=== PATIENT | male | born 1935 | race Caucasian/White ===

== ENCOUNTER 2018-07-23 03:05 | Inpatient (IN) | payer MEDICARE, OTHER ==
--- NOTE | 2018-07-23 03:31 | ED ---
General Adult HPI - General Stated complaint: Pneumonia Time Seen by Provider: 07/23/18 03:11 - History of Present Illness Initial comments: Santosh is an 83-year-old gentleman who was transferred to our facility from outside facility for evaluation of hypercapnic respiratory failure and mental status. Per the at bedside patient was in his usual state of health throughout the day yesterday he does have some mild dementia but she spent the day with him she had dinner with him and the return to his room where she noticed he had some significant difficulty in breathing he was breathing very quickly and seem like he wasn't getting enough air which time decision was made to take him to the skull for evaluation. During evaluation patient was noted to be much more tired than usual, less interactive, chest x-ray was concerning for possible ammonia and she was given vancomycin and Zosyn. ABG they revealed he was hypercapnic with a pCO2 of 77 he was initiated on BiPAP and decision was made to transfer to this facility for further management. Upon arrival patient has BiPAP in place is able to answer yes no questions but is very sleepy. When asked if he has chest pain patient says no. When asked if having trouble breathing patient pulled at the BiPAP but was advised to keep that on at which time he laid back down stop asking questions. - Related Data Allergies Allergy/AdvReac Type Severity Reaction Status Date / Time ativan AdvReac Hallucinati Uncoded 07/23/18 06:04 ons norco AdvReac Itching Uncoded 07/23/18 06:04 quetiapine AdvReac Confusion Uncoded 07/23/18 06:04 Review of Systems ROS Statement: Those systems with pertinent positive or pertinent negative responses have been documented in the HPI. ROS Other: All systems not noted in ROS Statement are negative. General Exam - General Exam Comments Initial Comments: Physical Exam GENERAL: Chronically ill appearing elderly male on bipap HENT: Normocephalic, Atraumatic. EYES: PERRL, EOMI PULMONARY: Tachypnea CARDIOVASCULAR: RRR ABDOMEN: Belly breathing SKIN: Skin is clear with no lesions or rashes and otherwise unremarkable. : Deferred NEUROLOGIC: Answers to his name, answers yes/no MUSCULOSKELETAL: No lower extremity edema PSYCHIATRIC: Unable to assess Course Vital Signs 07/23/18 07/23/18 07/23/18 03:13 03:15 03:40 Temperature 98.0 F Pulse Rate 73 75 60 Respiratory 16 16 21 Rate Blood Pressure 140/75 140/75 145/86 O2 Sat by Pulse 96 95 96 Oximetry 07/23/18 07/23/18 07/23/18 04:10 04:40 05:20 Temperature Pulse Rate 60 59 L 59 L Respiratory 20 20 20 Rate Blood Pressure 150/83 144/70 144/70 O2 Sat by Pulse 94 L 96 Oximetry 07/23/18 07/23/18 07/23/18 06:10 06:30 07:00 Temperature Pulse Rate 60 60 63 Respiratory 20 20 22 Rate Blood Pressure 155/77 137/62 115/61 O2 Sat by Pulse 97 98 Oximetry EKG Findings - EKG Comments: EKG Findings:: KG was obtained at 325, rate is 72 rhythm is ventricular paced QRS 132, QTc 473 to elevations or depressions no evidence of acute ischemia or infarction Procedures - Intubation Sedative: Etomidate Mg Given: 20 Paralytic: Succinylcholine Mg Given: 100 Laryngoscope: Moni Size: 3 ET Tube Size: 8 ET Tube Uncuffed: No Tube Secured Depth (cm): 23 Tube Secured Location: lips Tube Placement Confirmation: visualized tube passing through cords, equal breath sounds bilaterally, no breath sounds over epigastrium, confirmation by capnometry Patient Tolerated Procedure: well, no complications Medical Decision Making - Medical Decision Making Patient care was discussed with the transferring physician, patient was seen and evaluated upon arrival. Patient was noted to be somewhat sleepy but was able to reach up and pull off his BiPAP decision was made to continue treatment with BiPAP. ABG revealed worsening hypercapnia and BiPAP settings were adjusted. Patient was not improving and repeat BG again revealed worsening hypercapnia. At that time the patient's family arrived at bedside in CODE STATUS was discussed. They report that they would like the patient to be full code and would consent to intubation decision was made to intubate the patient for hypercapnic neck respiratory failure. Labs were reviewed Chest x-ray with no signs of pneumonia despite IV fluid resuscitation Patient care was discussed with Dr. Wilson who except the patient to the ICU for hypercapnic respiratory failure Patient care was discussed with Dr. Woodward who accepts the admission for hypercapnic respiratory failure - Lab Data Result diagrams: 07/23/18 04:12 07/23/18 04:12 Lab Results 07/23/18 07/23/18 07/23/18 Range/Units 03:57 04:12 04:12 WBC 9.0 (3.8-10.6) k/uL RBC 5.38 (4.30-5.90) m/uL Hgb 14.6 (13.0-17.5) gm/dL Hct 47.6 (39.0-53.0) % MCV 88.4 (80.0-100.0) fL MCH 27.2 (25.0-35.0) pg MCHC 30.7 L (31.0-37.0) g/dL RDW 13.8 (11.5-15.5) % Plt Count 208 (150-450) k/uL Neutrophils % 90 % Lymphocytes % 7 % Monocytes % 2 % Eosinophils % 1 % Basophils % 0 % Neutrophils # 8.1 H (1.3-7.7) k/uL Lymphocytes # 0.7 L (1.0-4.8) k/uL Monocytes # 0.1 (0-1.0) k/uL Eosinophils # 0.1 (0-0.7) k/uL Basophils # 0.0 (0-0.2) k/uL Hypochromasia Slight Sample Site Left Radial ABG pH 7.30 L (7.35-7.45) ABG pCO2 79 H* (35-45) mmHg ABG pO2 130 H (83-108) mmHg ABG HCO3 39 H (21-25) mmol/L ABG Total CO2 42 H (19-24) mmol/L ABG O2 Saturation 98.1 H (94-97) % ABG Base Excess 12.8 mmol/L Prashanth Test Yes FiO2 50 % Sodium 139 (137-145) mmol/L Potassium 4.9 (3.5-5.1) mmol/L Chloride 96 L (98-107) mmol/L Carbon Dioxide 36 H (22-30) mmol/L Anion Gap 7 mmol/L BUN 17 (9-20) mg/dL Creatinine 0.74 (0.66-1.25) mg/dL Est GFR (CKD-EPI)AfAm >90 (>60 ml/min/1.73 sqM) Est GFR (CKD-EPI)NonAf 85 (>60 ml/min/1.73 sqM) Glucose 136 H (74-99) mg/dL Calcium 8.7 (8.4-10.2) mg/dL Magnesium 1.8 (1.6-2.3) mg/dL Total Bilirubin 0.4 (0.2-1.3) mg/dL AST 28 (17-59) U/L ALT 21 (21-72) U/L Alkaline Phosphatase 95 (38-126) U/L Total Protein 7.1 (6.3-8.2) g/dL Albumin 3.7 (3.5-5.0) g/dL 07/23/18 Range/Units 04:55 WBC (3.8-10.6) k/uL RBC (4.30-5.90) m/uL Hgb (13.0-17.5) gm/dL Hct (39.0-53.0) % MCV (80.0-100.0) fL MCH (25.0-35.0) pg MCHC (31.0-37.0) g/dL RDW (11.5-15.5) % Plt Count (150-450) k/uL Neutrophils % % Lymphocytes % % Monocytes % % Eosinophils % % Basophils % % Neutrophils # (1.3-7.7) k/uL Lymphocytes # (1.0-4.8) k/uL Monocytes # (0-1.0) k/uL Eosinophils # (0-0.7) k/uL Basophils # (0-0.2) k/uL Hypochromasia Sample Site Left Radial ABG pH 7.29 L (7.35-7.45) ABG pCO2 80 H* (35-45) mmHg ABG pO2 84 (83-108) mmHg ABG HCO3 38 H (21-25) mmol/L ABG Total CO2 41 H (19-24) mmol/L ABG O2 Saturation 94.7 (94-97) % ABG Base Excess 11.8 mmol/L Prashanth Test Yes FiO2 35 % Sodium (137-145) mmol/L Potassium (3.5-5.1) mmol/L Chloride (98-107) mmol/L Carbon Dioxide (22-30) mmol/L Anion Gap mmol/L BUN (9-20) mg/dL Creatinine (0.66-1.25) mg/dL Est GFR (CKD-EPI)AfAm (>60 ml/min/1.73 sqM) Est GFR (CKD-EPI)NonAf (>60 ml/min/1.73 sqM) Glucose (74-99) mg/dL Calcium (8.4-10.2) mg/dL Magnesium (1.6-2.3) mg/dL Total Bilirubin (0.2-1.3) mg/dL AST (17-59) U/L ALT (21-72) U/L Alkaline Phosphatase (38-126) U/L Total Protein (6.3-8.2) g/dL Albumin (3.5-5.0) g/dL Critical Care Time Critical Care Time: Yes Total Critical Care Time: 30 Disposition Clinical Impression: Acute respiratory failure, Altered mental state, Hypercapnemia Disposition: ADMITTED IP TO THIS [facility] Condition: Serious Is patient prescribed a controlled substance at d/c from ED?: No
[2018-07-23 04:03] LABS: ABG Base Excess 12.8 mmol/L; ABG HCO3 39 mmol/L (21-25); ABG Oxygen Saturation 98.1 % (94-97); ABG PO2 130 mmHg (83-108); ABG TCO2 42 mmol/L (19-24); Allen Test Performed? Yes
[2018-07-23 04:14] LABS: ABG PCO2 79 mmHg (35-45)
[2018-07-23 04:29] LABS: Basophils % (A) 0 %; Eosinophils # (A) 0.1 k/uL (0-0.7); Eosinophils % (A) 1 %; HCT 47.6 % (39.0-53.0); HGB 14.6 gm/dL (13.0-17.5); Hypochromasia Slight; Lymphocytes # (A) 0.7 k/uL (1.0-4.8); Lymphocytes % (A) 7 %; MCH 27.2 pg (25.0-35.0); MCHC 30.7 g/dL (31.0-37.0); MCV 88.4 fL (80.0-100.0); Mean Platelet Volume 7.1; Monocytes # (A) 0.1 k/uL (0-1.0); Monocytes % (A) 2 %; Neutrophils # (A) 8.1 k/uL (1.3-7.7); Neutrophils % (A) 90 %; Platelet Count 208 k/uL (150-450); RBC 5.38 m/uL (4.30-5.90); RDW 13.8 % (11.5-15.5)
[2018-07-23 04:33] LABS: ALT 21 U/L (21-72); AST 28 U/L (17-59); African American GFR (CKD) >90 (>60 ml/min/1.73 sqM); Albumin 3.7 g/dL (3.5-5.0); Alkaline Phosphatase 95 U/L (38-126); Anion Gap 7 mmol/L; Blood Urea Nitrogen 17 mg/dL (9-20); Calcium 8.7 mg/dL (8.4-10.2); Carbon Dioxide 36 mmol/L (22-30); Chloride 96 mmol/L (98-107); Glucose 136 mg/dL (74-99); Magnesium 1.8 mg/dL (1.6-2.3); Potassium 4.9 mmol/L (3.5-5.1); Sodium 139 mmol/L (137-145); Total Bilirubin 0.4 mg/dL (0.2-1.3); Total Protein 7.1 g/dL (6.3-8.2)
--- NOTE | 2018-07-23 04:37 | XR ---
EXAM: XR Chest, 1 View CLINICAL HISTORY: ITS.REASON XR Reason: ANGEL TECHNIQUE: Frontal view of the chest. COMPARISON: No relevant prior studies available. FINDINGS: Lungs: Unremarkable. No consolidation. Pleural space: Unremarkable. No pneumothorax. Heart: No pneumomediastinum. Mediastinum: Unremarkable. Bones/joints: No definite fracture. IMPRESSION: No acute findings.
[2018-07-23 05:00] LABS: ABG Base Excess 11.8 mmol/L; ABG HCO3 38 mmol/L (21-25); ABG Oxygen Saturation 94.7 % (94-97); ABG PH 7.29 (7.35-7.45); ABG PO2 84 mmHg (83-108); ABG TCO2 41 mmol/L (19-24); Allen Test Performed? Yes
[2018-07-23 05:07] LABS: ABG PCO2 80 mmHg (35-45)
--- NOTE | 2018-07-23 05:09 | CT ---
EXAM: CT Head Without Intravenous Contrast CLINICAL HISTORY: ITS.REASON CT Reason: altered TECHNIQUE: Axial computed tomography images of the head/brain without intravenous contrast. This CT exam was performed using one or more of the following dose reduction techniques: automated exposure control, adjustment of the mA and/or kV according to patient size, and/or use of iterative reconstruction technique. COMPARISON: No relevant prior studies available. FINDINGS: Brain: No hemorrhage. No edema. Ventricles: Unremarkable. No ventriculomegaly. Bones/joints: No acute fracture. Soft tissues: Unremarkable. Sinuses: No fluid levels. Mastoid air cells: Unremarkable as visualized. No mastoid effusion. IMPRESSION: No acute intracranial findings
[2018-07-23] MEDS ORDERED: NALOXONE 0.4 MG/ML 1 ML VIAL IV PRN (05:38)
[2018-07-23] MEDS ORDERED: PROPOFOL 1,000 MG in EMPTY BAG 1 BAG IV ONE (06:02)
[2018-07-23] MEDS ORDERED: SUCCINYLCHOLINE CHLORIDE VIAL 200 MG/10 ML VIAL IV STA (06:03)
[2018-07-23] MEDS ORDERED: ETOMIDATE 2 MG/ML 10 ML VIAL IVP STA (06:03)
--- NOTE | 2018-07-23 07:22 | XR ---
EXAM: XR Chest, 1 View CLINICAL HISTORY: ITS.REASON XR Reason: line placement TECHNIQUE: Frontal view of the chest. COMPARISON: No relevant prior studies available. FINDINGS: Lungs: Unremarkable. No consolidation. Pleural space: Unremarkable. No pneumothorax. Heart: No pneumomediastinum. Mediastinum: Unremarkable. Bones/joints: No definite fracture. Tubes, lines and devices: Support tubes in place. NG tube in the stomach and endotracheal tube 5 cm above the carl IMPRESSION: No acute findings.
[2018-07-23 07:41] LABS: ABG Base Excess 11.5 mmol/L; ABG HCO3 37 mmol/L (21-25); ABG Oxygen Saturation 90.8 % (94-97); ABG PCO2 64 mmHg (35-45); ABG PH 7.37 (7.35-7.45); ABG PO2 61 mmHg (83-108); ABG TCO2 39 mmol/L (19-24); Allen Test Performed? Yes
[2018-07-23] MEDS: PROPOFOL 1,000 MG in EMPTY BAG 1 BAG IV SCH ×4 (08:30→19:19)
[2018-07-23 08:41] LABS: Glucose,Whole Blood 171 mg/dL (75-99)
[2018-07-23] MEDS ORDERED: IPRATROPIUM-ALBUTEROL 3 ML NEB INHALATION PRN (09:18)
[2018-07-23] MEDS: SODIUM CHLORIDE 0.9% 1,000 ML IV SCH ×3 (09:30→15:11)
[2018-07-23] MEDS ORDERED: CISATRACURIUM 2 MG/ML 5 ML VIAL IV ONE (09:52)
[2018-07-23] MEDS ORDERED: SODIUM CHLORIDE 0.9% 1,000 ML IV ONE (10:55)
--- NOTE | 2018-07-23 10:57 | CONS ---
CONSULTATION DATE OF SERVICE: July 23, 2018. PULMONARY/CRITICAL CARE CONSULTATION: HISTORY OF PRESENT ILLNESS: This is is an 83-year-old gentleman who resides at one of the nursing homes up in [place]. The patient apparently was found by his to be short of breath. The patient was transferred to [facility] where he was placed on BiPAP. He was transferred down here. He saw Dr. Orellana in the emergency room. She was concerned for romulo respiratory failure requiring intubation and mechanical ventilation. Because he apparently was not getting better on treatments and BiPAP in our emergency room, she electively intubated the patient. The patient was now sent up to the ICU. The patient is currently on the ventilator. The vent settings are the volume assist-control mode rate of 22, tidal volume 500, FiO2 100%, PEEP of 5. Blood gases done in the emergency room show pO2 of 61, pCO2 of 64, and a pH 7.37. He is getting saline at 50 mL an hour and Diprivan at 40 mcg/kg per per minute. He apparently has a history of COPD, pacemaker insertion, CABG in 2010, CVA. He is currently wheelchair bound. ALLERGIES: HIS ALLERGIES INCLUDE ATIVAN,NORCO, AND SEROQUEL. MEDICATIONS: His usual medications at the [facility] include Norvasc, coenzyme Q, Flomax, potassium, multivitamins, metoprolol, Namenda, melatonin, milk of magnesia, Imodium, hydrochlorothiazide, vitamin D3, Eliquis, albuterol updrafts, Tylenol, and Zantac. PAST MEDICAL HISTORY: The rest of the history is not well known. We do not know much about surgical history other than a bypass and a pacemaker insertion. OCCUPATIONAL HISTORY: Not documented as yet. FAMILY HISTORY: Not documented as yet. REVIEW OF SYSTEMS: Cannot be obtained. The patient is currently intubated. According to the , the reason that she initially had him brought into the [place] ER was that of shortness of breath and difficulty breathing. PHYSICAL EXAMINATION: VITAL SIGNS: Current vital signs are reviewed. Temperature is 98, heart rate 63, respiratory rate 22, blood pressure 115/61 mean 79, saturations 98%. GENERAL: Currently sedated. There is an orally placed endotracheal tube and NG tube. HEENT examination is grossly unremarkable. NECK: Supple. No adenopathy or neck vein distention. No thyromegaly. CARDIOVASCULAR examination reveals regular rhythm and rate. Heart rate 63 beats per minute. LUNGS: Some coarse rhonchi and wheezes. Breath sounds are diminished. ABDOMEN: Soft. Bowel sounds are not noted. EXTREMITIES are intact. Mild edema. SKIN without rash. NEUROLOGIC examination could not be adequately assessed. LABS: Reviewed. White count 9, hemoglobin 14.6, hematocrit 47.6, platelet count 208,000. Initial blood gases post intubation show pO2 of 61, pCO2 of 64, and pH 7.37. The initial blood gases in the emergency room showed a PO2 of 130, pCO2 of 39, and pCO2 of 79, and pH 7.30. Subsequent blood gases show PO2 of 84, a pCO2 of 80 and pH 7.29. Sodium, potassium normal, chloride 96, CO2 36, BUN and creatinine were 17 and 0.74. The patient's chest x-ray showed no acute findings. Repeat chest x-ray post intubation showed no acute findings and a brain CT showed nothing acute. MEDICATIONS ARE: Reviewed. Currently, he is on IV Tylenol, chlorhexidine, updrafts with DuoNeb, Narcan, propofol Protonix and subcu heparin. ASSESSMENT: 1. Acute on chronic hypoxemic hypercapnic respiratory failure in a patient with established history of chronic obstructive pulmonary disease. 2. Status post bypass grafting, 2010. 3. Status post pacemaker insertion. 4. History of cerebrovascular accident. 5. General medical debility as the patient apparently is wheelchair bound. 6. History of hypertension. 7. History of benign prostatic hypertrophy. 8. History of dementia. 9. History of insomnia. PLAN: The patient will have a central line and art line placed. We will start him on tube feeds. No additional recommendations are made. Prognosis is guarded. We will do a repeat blood gas and make ventilator adjustments. No additional recommendations are made. Prognosis is very guarded. MMODL / IJN: [id number] /
[2018-07-23 11:10] LABS: ABG Base Excess 9.3 mmol/L; ABG HCO3 33 mmol/L (21-25); ABG Oxygen Saturation 99.8 % (94-97); ABG PCO2 48 mmHg (35-45); ABG PH 7.45 (7.35-7.45); ABG PO2 326 mmHg (83-108); ABG TCO2 35 mmol/L (19-24)
[2018-07-23 11:13] LABS: Allen Test Performed? no
--- NOTE | 2018-07-23 11:14 | XR ---
EXAMINATION TYPE: XR chest 1V portable DATE OF EXAM: 07/23/2018 HISTORY: Line Placement. REFERENCE: Previous study from earlier today. FINDINGS: There has been a midline sternotomy. The NG tube is in place. Its tip cannot be followed be yond the distal esophagus. A left-sided central line has been placed. Its tip is at the cavoatrial ju nction. No definite pneumothorax is identified. Heart size upper limits of normal. The lungs are clear. Pleural space are clear. IMPRESSION: I DO NOT IDENTIFY A POST CATHETER INSERTION COMPLICATION.
[2018-07-23] MEDS: IPRATROPIUM-ALBUTEROL 3 ML NEB INHALATION SCH ×4 (11:17→23:56)
[2018-07-23] MEDS: CHLORHEXIDINE GLUCONATE 15 ML CUP MUCOUS MEM SCH ×2 (12:13→21:24)
[2018-07-23] MEDS: PANTOPRAZOLE 40 MG/10 ML VIAL IV SCH (12:13)
[2018-07-23 12:23] LABS: Glucose,Whole Blood 152 mg/dL (75-99)
--- NOTE | 2018-07-23 12:57 | PCN ---
PROCEDURE NOTE ARTERIAL LINE PLACEMENT: Indications: Hemodynamic monitoring. A time-out was completed verifying correct patient, procedure, site, positioning, and implant(s) or special equipment if applicable. Prashanth's test was performed to ensure adequate perfusion. The patient's left wrist was prepped and draped in sterile fashion. 1% Lidocaine was used to anesthetize the area. An 18G Arrow arterial line was introduced into the radial artery. The catheter was threaded over the guide wire and the needle was removed with appropriate pulsatile blood return. Blood loss was minimal. The catheter was then sutured in place to the skin and a sterile dressing applied. Perfusion to the extremity distal to the point of catheter insertion was checked and found to be adequate. The patient tolerated the procedure well and there were no complications. There was no immediate complication. We used the left radial artery. The catheter was sutured in place. Sterile dressing was applied. The reason for the procedure was frequent blood gases and blood gas monitoring as well as frequent blood draws. MMODL / IJN: [id number] /
--- NOTE | 2018-07-23 12:57 | PCN ---
PROCEDURE NOTE TRIPLE LUMEN CATHETER PLACEMENT: Indication: Hemodynamic monitoring/Intravenous access. A time-out was completed verifying correct patient, procedure, site, positioning, and implant(s) or special equipment if applicable. The patient was placed in a dependent position appropriate for triple lumen catheter placement based on the vein to be cannulated. The patient's left neck was prepped and draped in sterile fashion. 1% Lidocaine was used to anesthetize the surrounding skin area. A triple lumen 9F Cordis catheter was introduced into the internal jugular vein using Seldinger technique. The catheter was threaded smoothly over the guide wire and appropriate blood return was obtained. Each lumen of the catheter was evacuated of air and flushed with sterile saline. The catheter was then sutured in place to the skin and a sterile dressing applied. Perfusion to the extremity distal to the point of catheter insertion was checked and found to be adequate. There was no immediate complication. We used a posterior approach left internal jugular vein. There was no immediate complication. The catheter tip was seen in the superior vena cava/right atrial junction. The catheter was sutured in place. Sterile dressing is applied. Course x-ray had been ordered. Showed the procedure was well tolerated. There was no complication. MMODL / IJN: [id number] /
[2018-07-23] MEDS: INSULIN ASPART (NovoLOG) 100 UNIT/ML VIAL SQ SCH ×2 (13:18→18:21)
[2018-07-23] MEDS ORDERED: SODIUM CHLORIDE 0.9% 2,000 ML IV ONE (14:10)
[2018-07-23] MEDS: HEPARIN SODIUM,PORCINE 5,000 UNIT/ML 1 ML VIAL SQ SCH ×2 (16:38→23:42)
[2018-07-23] MEDS ORDERED: FUROSEMIDE 10 MG/ML 4 ML VIAL IV STA (16:59)
[2018-07-23 17:10] LABS: Glucose,Whole Blood 131 mg/dL (75-99)
--- NOTE | 2018-07-23 17:41 | P.HPIM ---
History of Present Illness 80-year-old male resident of [facility] came in with comments of shortness of breath patient is found to be in hypercapnic respiratory failure was on BiPAP not doing well patient was subsequently intubated. Patient is presently intubated sedated on propofol. Patient chest x-ray did not show any significant amount process patient is on FiO2 of 40% PEEP of 5 set up respiratory rate of 22 type volume of 500. Review of Systems Unable to obtain Past Medical History Past Medical History: Atrial Fibrillation, Coronary Artery Disease (CAD), Cance r, COPD, Dementia, Hearing Disorder / Deafness, Hyperlipidemia, Hypertension, Memory Impairment, Musculoskeletal Disorder, Prostate Disorder, Respiratory Disorder, Vascular Disorder Additional Past Medical History / Comment(s): Vascular, Dementia, CA prostate, Bradycardia, AFIB,BPH, Prostate CA per (Dr Washington), Emphysema, arthitis History of Any Multi-Drug Resistant Organisms: None Reported Past Surgical History: AICD, Cholecystectomy, Coronary Bypass/CABG, Joint Replacement, Pacemaker Additional Past Surgical History / Comment(s): 4 vessel CABG 2010 ([place]), Cataracts; Left knee replaced; left rotator cuff, 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; [employer] pacemakerimplanted 09/11/2010 Model [id number] serial # [id number] Past Anesthesia/Blood Transfusion Reactions: No Reported Reaction Type of Cardiac Device: Permanent Pacemaker, AICD Device Placement Date:: 09/11/2010 Past Psychological History: No Psychological Hx Reported, Anxiety Smoking Status: Unknown if ever smoked Past Alcohol Use History: None Reported Past Drug Use History: None Reported - Past Family History Sister(s) Family Medical History: Cancer Additional Family Medical History / Comment(s): Breast CA Brother(s) Family Medical History: Cancer Additional Family Medical History / Comment(s): X2 brothers passed Father Additional Family Medical History / Comment(s): Stroke Mother Family Medical History: Cancer Medications and Allergies Home Medications Medication Instructions Recorded Confirmed Type ALPRAZolam [Xanax] 1 mg PO BID 07/23/18 07/23/18 History Acetaminophen Tab [Tylenol] 500 mg PO BID 07/23/18 07/23/18 History Albuterol Nebulized [Ventolin 2.5 mg INHALATION RT-TID 07/23/18 07/23/18 History Nebulized] Apixaban [Eliquis] 2.5 mg PO BID 07/23/18 07/23/18 History Carboxymethylcellulos/Glycerin 1 drop BOTH EYES TID 07/23/18 07/23/18 History [Refresh Repair 0.5-0.9% Drop] Cholecalciferol (Vitamin D3) 1,000 unit PO DAILY 07/23/18 07/23/18 History [Vitamin D3] Hydrochlorothiazide [Hydrodiuril] 25 mg PO DAILY 07/23/18 07/23/18 History Lactobacillus Acidophilus 1 tab PO DAILY 07/23/18 07/23/18 History [Acidophilus] Loperamide [Imodium] 2 mg PO BID 07/23/18 07/23/18 History Magnesium Hydroxide [Milk of 2,400 mg PO DAILY PRN 07/23/18 07/23/18 History Magnesia] Melatonin 5 mg PO HS 07/23/18 07/23/18 History Memantine [Namenda] 5 mg PO HS 07/23/18 07/23/18 History Metoprolol Tartrate [Lopressor] 50 mg PO DAILY 07/23/18 07/23/18 History Multivitamins, Thera [Multivitamin 1 tab PO DAILY 07/23/18 07/23/18 History (formulary)] Potassium Chloride ER [K-Dur 20] 20 meq PO BID 07/23/18 07/23/18 History Tamsulosin [Flomax] 0.4 mg PO DAILY 07/23/18 07/23/18 History Ubidecarenone [Co Q-10] 200 mg PO HS 07/23/18 07/23/18 History amLODIPine [Norvasc] 5 mg PO DAILY 07/23/18 07/23/18 History Allergies Allergy/AdvReac Type Severity Reaction Status Date / Time ativan AdvReac Hallucinati Uncoded 07/23/18 06:04 ons norco AdvReac Itching Uncoded 07/23/18 06:04 quetiapine AdvReac Confusion Uncoded 07/23/18 06:04 Physical Exam Vitals: Vital Signs Temp Pulse Resp BP Pulse Ox 07/23/18 15:51 66 07/23/18 15:40 64 07/23/18 11:30 60 07/23/18 11:17 60 07/23/18 09:00 97.7 F 60 23 127/77 99 07/23/18 08:30 94.8 F L 65 22 117/70 07/23/18 08:00 60 22 122/66 98 07/23/18 07:30 60 22 126/73 98 07/23/18 07:00 63 22 115/61 98 07/23/18 06:30 60 20 137/62 97 07/23/18 06:10 60 20 155/77 07/23/18 05:20 59 L 20 144/70 07/23/18 04:40 59 L 20 144/70 96 07/23/18 04:10 60 20 150/83 94 L 07/23/18 03:40 60 21 145/86 96 07/23/18 03:15 75 16 140/75 95 07/23/18 03:13 98.0 F 73 16 140/75 96 Intake and Output 07/23/18 07/23/18 07/23/18 06:59 14:59 22:59 Intake Total 1.083 250 100 Output Total 320 Balance 1.083 -70 100 Intake: Intake, IV Titration 1.083 250 100 Amount Propofol 1,000 mg In 1.083 Empty Bag 1 bag @ Titrate IV .Q0M [facility] Rx#: [id number] Propofol 1,000 mg In 100 100 Empty Bag 1 bag @ Titrate IV .Q0M [facility] Rx#: [id number] Sodium Chloride 0.9% 1, 150 000 ml @ 50 mls/hr IV . Q20H [facility] Rx#:[id number] Output: Urine 320 Other: Weight 121.336 kg PHYSICAL EXAMINATION: GENERAL: Patient is intubated sedated HEENT: Pupils are round and equally reacting to light. EOMI. No scleral icterus. No conjunctival pallor. Normocephalic, atraumatic. No pharyngeal erythema. No thyromegaly. CARDIOVASCULAR: S1 and S2 present. No murmurs, rubs, or gallops. PULMONARY: Diffuse rhonchi ABDOMEN: Soft, nontender, nondistended, normoactive bowel sounds. No palpable organomegaly. MUSCULOSKELETAL: No joint swelling or deformity. EXTREMITIES: No cyanosis, clubbing, or pedal edema. NEUROLOGICAL: Unable to assess SKIN: No rashes. Results CBC & Chem 7: 07/23/18 04:12 07/23/18 04:12 Labs: Abnormal Lab Results - Last 24 Hours (Table) 07/23/18 07/23/18 07/23/18 Range/Units 03:57 04:12 04:12 MCHC 30.7 L (31.0-37.0) g/dL Neutrophils # 8.1 H (1.3-7.7) k/uL Lymphocytes # 0.7 L (1.0-4.8) k/uL ABG pH 7.30 L (7.35-7.45) ABG pCO2 79 H* (35-45) mmHg ABG pO2 130 H (83-108) mmHg ABG HCO3 39 H (21-25) mmol/L ABG Total CO2 42 H (19-24) mmol/L ABG O2 Saturation 98.1 H (94-97) % Chloride 96 L (98-107) mmol/L Carbon Dioxide 36 H (22-30) mmol/L Glucose 136 H (74-99) mg/dL POC Glucose (mg/dL) (75-99) mg/dL 07/23/18 07/23/18 07/23/18 Range/Units 04:55 07:04 08:29 MCHC (31.0-37.0) g/dL Neutrophils # (1.3-7.7) k/uL Lymphocytes # (1.0-4.8) k/uL ABG pH 7.29 L (7.35-7.45) ABG pCO2 80 H* 64 H (35-45) mmHg ABG pO2 61 L (83-108) mmHg ABG HCO3 38 H 37 H (21-25) mmol/L ABG Total CO2 41 H 39 H (19-24) mmol/L ABG O2 Saturation 90.8 L (94-97) % Chloride (98-107) mmol/L Carbon Dioxide (22-30) mmol/L Glucose (74-99) mg/dL POC Glucose (mg/dL) 171 H (75-99) mg/dL 07/23/18 07/23/18 07/23/18 Range/Units 11:04 12:11 16:59 MCHC (31.0-37.0) g/dL Neutrophils # (1.3-7.7) k/uL Lymphocytes # (1.0-4.8) k/uL ABG pH (7.35-7.45) ABG pCO2 48 H (35-45) mmHg ABG pO2 326 H (83-108) mmHg ABG HCO3 33 H (21-25) mmol/L ABG Total CO2 35 H (19-24) mmol/L ABG O2 Saturation 99.8 H (94-97) % Chloride (98-107) mmol/L Carbon Dioxide (22-30) mmol/L Glucose (74-99) mg/dL POC Glucose (mg/dL) 152 H 131 H (75-99) mg/dL Microbiology - Last 24 Hours (Table) 07/23/18 06:38 Gram Stain - Preliminary Sputum Sputum Culture - Preliminary Assessment and Plan Plan: Acute on chronic hypercapnic respiratory failure secondary to COPD exacerbation for which patient assessment strides continue with inhalational treatments with ventilatory support and wean off as tolerated. -Cerebral vascular accident -Atrial fibrillation, sick sinus syndrome patient has a pacemaker patient is on Eliquis which will be continued -History of CVA in the past -Hypertension Abdomen benign prostatic hypertrophic -Dementia -Generalized deconditioning Patient will need GI prophylaxis pharmacologic
[2018-07-23] MEDS: NOREPINEPHRINE 4 MG in SODIUM CHLORIDE 0.9% 250 ML IV SCH (18:09)
[2018-07-23 21:08] LABS: Hyaline Casts,Urine 49 /lpf (0-2); Mucus,Urine Rare /hpf; RBC,Urine 1 /hpf (0-5)
[2018-07-23 21:09] LABS: Appearance,Urine Clear (Clear); Bilirubin,Urine Negative (Negative); Blood,Urine Negative (Negative); Color,Urine Light Yellow; Glucose,Urine (UA) Negative (Negative); Ketones,Urine Negative (Negative); Leukocyte Esterase,Urine Negative (Negative); Nitrite,Urine Negative (Negative); Protein,Urine Negative (Negative); Urobilinogen,Urine <2.0 mg/dL (<2.0)
[2018-07-23] MEDS: methylPREDNISolone SOD SUCCI 40 MG/ML 1 ML VIAL IV SCH (21:24)
[2018-07-23] MEDS: APIXABAN 2.5 MG TABLET PO SCH (21:24)
[2018-07-23] MEDS: METOPROLOL TARTRATE 25 MG TAB PO SCH (21:24)
[2018-07-23 23:52] LABS: Glucose,Whole Blood 130 mg/dL (75-99)
[2018-07-24] MEDS: INSULIN ASPART (NovoLOG) 100 UNIT/ML VIAL SQ SCH ×5 (00:44→23:37)
[2018-07-24] MEDS: PROPOFOL 1,000 MG in EMPTY BAG 1 BAG IV SCH ×7 (00:47→23:33)
[2018-07-24] MEDS: IPRATROPIUM-ALBUTEROL 3 ML NEB INHALATION SCH ×5 (03:44→20:14)
[2018-07-24 04:39] LABS: ABG Base Excess 3.7 mmol/L; ABG HCO3 29 mmol/L (21-25); ABG Oxygen Saturation 94.1 % (94-97); ABG PCO2 48 mmHg (35-45); ABG PH 7.39 (7.35-7.45); ABG PO2 73 mmHg (83-108); ABG TCO2 30 mmol/L (19-24); Allen Test Performed? Yes
[2018-07-24 05:14] LABS: African American GFR (CKD) >90 (>60 ml/min/1.73 sqM); Anion Gap 10 mmol/L; Blood Urea Nitrogen 22 mg/dL (9-20); Calcium 8.4 mg/dL (8.4-10.2); Carbon Dioxide 28 mmol/L (22-30); Chloride 99 mmol/L (98-107); Glucose 164 mg/dL (74-99); Magnesium 1.8 mg/dL (1.6-2.3); Phosphorus 3.6 mg/dL (2.5-4.5); Potassium 4.1 mmol/L (3.5-5.1); Sodium 137 mmol/L (137-145)
[2018-07-24 05:16] LABS: Basophils % (A) 0 %; Eosinophils % (A) 0 %; HCT 39.6 % (39.0-53.0); HGB 12.3 gm/dL (13.0-17.5); Hypochromasia Moderate; Lymphocytes # (A) 0.6 k/uL (1.0-4.8); Lymphocytes % (A) 7 %; MCH 27.3 pg (25.0-35.0); MCHC 31.1 g/dL (31.0-37.0); MCV 87.7 fL (80.0-100.0); Mean Platelet Volume 7.7; Monocytes # (A) 0.2 k/uL (0-1.0); Monocytes % (A) 2 %; Neutrophils # (A) 7.5 k/uL (1.3-7.7); Neutrophils % (A) 90 %; Platelet Count 163 k/uL (150-450); RBC 4.52 m/uL (4.30-5.90); RDW 14.2 % (11.5-15.5); WBC 8.3 k/uL (3.8-10.6)
[2018-07-24] MEDS: SODIUM CHLORIDE 0.9% 1,000 ML IV SCH ×2 (05:41→15:46)
[2018-07-24] MEDS ORDERED: Magnesium Replacement Protocol 1 EACH MISC MISCELLANE PRN (05:45)
[2018-07-24] MEDS: MAGNESIUM SULFATE-D5W PMX 1 GM in DEXTROSE/WATER 1 100ML.BAG IVPB SCH ×2 (05:50→06:57)
[2018-07-24 06:49] LABS: Glucose,Whole Blood 196 mg/dL (75-99)
[2018-07-24 06:49] LABS: Glucose,Whole Blood 142 mg/dL (75-99)
[2018-07-24] MEDS: NOREPINEPHRINE 4 MG in SODIUM CHLORIDE 0.9% 250 ML IV SCH ×3 (06:59→19:49)
--- NOTE | 2018-07-24 07:18 | XR ---
EXAMINATION TYPE: XR chest 1V portable DATE OF EXAM: 07/24/2018 COMPARISON: 07/23/2018 HISTORY: Endotracheal tube placement. ICU management. TECHNIQUE: Single frontal view of the chest is obtained. FINDINGS: Endotracheal tube and enteric tubes are similar in position to the prior. Post surgical ch anges of the chest are again noted with median sternotomy wires. Left-sided internal jugular central venous catheter again terminates in the high right atrium. Lung volumes have decreased in the interim with new bibasilar airspace disease and small left as well as trace right pleural effusions. No siza ble pneumothorax. IMPRESSION: New small left pleural effusion, trace right pleural effusion and bibasilar airspace dis ease, likely atelectasis. Stable lines and tubes.
[2018-07-24] MEDS: CHLORHEXIDINE GLUCONATE 15 ML CUP MUCOUS MEM SCH ×2 (09:16→20:12)
[2018-07-24] MEDS: APIXABAN 2.5 MG TABLET PO SCH ×2 (09:16→20:12)
[2018-07-24] MEDS: HEPARIN SODIUM,PORCINE 5,000 UNIT/ML 1 ML VIAL SQ SCH ×3 (09:17→23:33)
[2018-07-24] MEDS: TAMSULOSIN 0.4 MG CAP.ER.24H PO SCH (09:17)
[2018-07-24] MEDS: METOPROLOL TARTRATE 25 MG TAB PO SCH ×2 (09:17→20:12)
[2018-07-24] MEDS: PANTOPRAZOLE 40 MG/10 ML VIAL IV SCH (09:17)
[2018-07-24] MEDS: methylPREDNISolone SOD SUCCI 40 MG/ML 1 ML VIAL IV SCH ×2 (09:17→20:12)
[2018-07-24 12:00] LABS: Glucose,Whole Blood 153 mg/dL (75-99)
[2018-07-24] MEDS: PIPERACILLIN-TAZOBACTAM 3.375 GM in SODIUM CHLORIDE 0.9% 100 ML IVPB SCH ×2 (12:12→19:42)
[2018-07-24 12:34] LABS: Hemoglobin A1C 5.9 % (4.0-6.0)
--- NOTE | 2018-07-24 14:45 | P.PN ---
Subjective 83-year-old male was admitted for COPD exacerbation acute hypercapnic respiratory failure and patient remains intubated and didn't undergo pain felt today this will be attempted tomorrow. Unable to obtain due to patient's clinical condition All inpatient medications were reviewed and appropriate changes in these medications as dictated in the interval history and assessment and plan. Objective - Vital Signs Vital signs: Vital Signs Temp 97.3 F L 07/24/18 08:00 Pulse 62 07/24/18 11:35 Resp 22 07/24/18 08:30 BP 128/65 07/24/18 08:30 Pulse Ox 96 07/24/18 08:30 Intake & Output 07/23/18 07/24/18 07/24/18 18:59 06:59 18:59 Intake Total 5235.678 1550.596 441.960 Output Total 936 690 67 Balance 4299.678 860.596 374.960 Weight 117.2 kg 117.2 kg Intake: IV 1200 300 Magnesium Sulfate-D5w Pmx 100 100 1 gm In Dextrose/Water 1 100ml.bag @ 100 mls/hr IVPB Q1H [facility] Rx#: [id number] Sodium Chloride 0.9% 1, 1100 200 000 ml @ 100 mls/hr IV . Q10H [facility] Rx#:[id number] Intake, IV Titration 5235.678 350.596 141.960 Amount Propofol 1,000 mg In 210.678 250.596 141.960 Empty Bag 1 bag @ Titrate IV .Q0M [facility] Rx#: [id number] Sodium Chloride 0.9% 1, 1025 100 000 ml @ 100 mls/hr IV . Q10H [facility] Rx#:[id number] Sodium Chloride 0.9% 1, 4000 000 ml @ 999 mls/hr IV . Q1H1M [facility] Rx#:[id number] Output: Urine 936 690 67 Other: Voiding Method Indwelling Catheter Indwelling Catheter Indwelling Catheter ABP, PAP, CO, CI - Last Documented Arterial Blood Pressure 121/50 - Exam PHYSICAL EXAMINATION: GENERAL: Patient is intubated sedated HEENT: Pupils are round and equally reacting to light. EOMI. No scleral icterus. No conjunctival pallor. Normocephalic, atraumatic. No pharyngeal erythema. No thyromegaly. CARDIOVASCULAR: S1 and S2 present. No murmurs, rubs, or gallops. PULMONARY: Diffuse rhonchi ABDOMEN: Soft, nontender, nondistended, normoactive bowel sounds. No palpable organomegaly. MUSCULOSKELETAL: No joint swelling or deformity. EXTREMITIES: No cyanosis, clubbing, or pedal edema. NEUROLOGICAL: Unable to assess SKIN: No rashes. - Labs CBC & Chem 7: 07/24/18 04:50 07/24/18 04:50 Labs: Abnormal Lab Results - Last 24 Hours (Table) 07/23/18 07/23/18 07/23/18 Range/Units 16:59 20:35 23:40 Hgb (13.0-17.5) gm/dL Lymphocytes # (1.0-4.8) k/uL ABG pCO2 (35-45) mmHg ABG pO2 (83-108) mmHg ABG HCO3 (21-25) mmol/L ABG Total CO2 (19-24) mmol/L BUN (9-20) mg/dL Glucose (74-99) mg/dL POC Glucose (mg/dL) 131 H 130 H (75-99) mg/dL Hyaline Casts 49 H (0-2) /lpf Urine Mucus Rare H (None) /hpf 07/24/18 07/24/18 07/24/18 Range/Units 04:36 04:50 04:50 Hgb 12.3 L (13.0-17.5) gm/dL Lymphocytes # 0.6 L (1.0-4.8) k/uL ABG pCO2 48 H (35-45) mmHg ABG pO2 73 L (83-108) mmHg ABG HCO3 29 H (21-25) mmol/L ABG Total CO2 30 H (19-24) mmol/L BUN 22 H (9-20) mg/dL Glucose 164 H (74-99) mg/dL POC Glucose (mg/dL) (75-99) mg/dL Hyaline Casts (0-2) /lpf Urine Mucus (None) /hpf 07/24/18 07/24/18 07/24/18 Range/Units 05:29 05:30 11:49 Hgb (13.0-17.5) gm/dL Lymphocytes # (1.0-4.8) k/uL ABG pCO2 (35-45) mmHg ABG pO2 (83-108) mmHg ABG HCO3 (21-25) mmol/L ABG Total CO2 (19-24) mmol/L BUN (9-20) mg/dL Glucose (74-99) mg/dL POC Glucose (mg/dL) 196 H 142 H 153 H (75-99) mg/dL Hyaline Casts (0-2) /lpf Urine Mucus (None) /hpf Microbiology - Last 24 Hours (Table) 07/23/18 06:38 Gram Stain - Preliminary Sputum Sputum Culture - Preliminary 07/23/18 04:12 Blood Culture - Preliminary Blood No Growth after 24 hours Assessment and Plan Plan: Acute on chronic hypercapnic respiratory failure secondary to COPD exacerbation for which patient will continue with inhalational treatments with ventilatory support and wean off as tolerated. She was started on empiric antibiotics per pulmonary -Cerebral vascular accident -Atrial fibrillation, sick sinus syndrome patient has a pacemaker patient is on Eliquis which will be continued -History of CVA in the past -Hypertension Abdomen benign prostatic hypertrophic -Dementia -Generalized deconditioning Patient will need GI prophylaxis pharmacologic
--- NOTE | 2018-07-24 15:07 | CDI ---
Documentation Clarification Form Date: 07/24/2018 2:52:57 PM From: Sherita Mccabe RN CCDS Admit Date: 07/23/2018 5:38:00 AM Patient Name: Santosh Coyle Visit Number: [id number] Discharge Date: ATTENTION: The Clinical Documentation Specialists (CDI) and [facility] Coding Staff appreciate your assistance in clarifying documentation. Please respond to the clarification below the line at the bottom and electronically sign. The CDI & [facility] Coding staff will review the response and follow-up if needed. Please note: Queries are made part of the Legal Health Record. If you have any questions, please contact the author of this message via ITS. Dr. Zeke Gasca MD Altered Mental Status was documented in the ED History/Risk Factors: 83 year old male presents to the ED via EMS from [facility] for evaluation of respiratory failure and altered mental status. Clinical Indicators: Medical history Dementia, COPD, CAD Labs: ABGS Ph 7.30; Pco2 79; Po2 130; Hco3 39; co2 52; O2 sat 98.1; Glucose 136; Chl 96; carbon dioxide 36; CT Brain : No acute intracranial findings. Treatment: Bibap then intubated with mechanical ventilation;; Lasix; 0.9ns fluids In your professional opinion, please clarify the etiology of the Altered Mental Status, if known. * Metabolic Encephalopathy (specify Underlying Medical Illness) * Dementia (if know, specify Type and if with/without Behavioral Disturbance) * Other condition (please specify) * Unable to determine (Last Revision: May 2017) Dementia MTDD
--- NOTE | 2018-07-24 17:35 | P.PN ---
Subjective Progress Note Date: 07/24/18 On 07/24/2018 the patient is being seen for a follow-up. Noted the patient is long-term resident. The patient's condition has been gradually decompensating as reported by family members and his son. The patient came into the hospital because of worsening shortness of breath. Initially was taken to the hospital he was placed on a BiPAP. Following his arrival here to the emergency department, the patient was intubated and placed on a mechanical ventilator. The exact cause for the respiratory failure is not clear to me. Seems that the patient went into an acute hypercapnic respiratory failure. This morning, the patient is an assist-control mode of ventilation with a tidal volume of 500 with a rate of 22 and FiO2 of 40% and PEEP of 5. Chest x-ray shows some limited bibasilar pulmonary infiltrates. The airway pressure nonelevated. Blood gas showed a pH of 7.39 with a pCO2 of 48 and pO2 of 73. The patient is afebrile hemodynamically stable. No significant leukocytosis and the white cell count at 8.3. The renal function is within normal limits. Electrodes are also within normal limits. Hemoglobin is at 12.3. White cell count at 8.3. Patient is sedated with propofol and is calm and comfortable. IV Zosyn was added in consultation for aspiration pneumonia. Cultures still pending for now. The patient has history of atrial fibrillation for that reason is maintained on Eliquis. 2 feeds are also to be started. No other significant events otherwise over the past 24 hours. Objective - Vital Signs Vital signs: Vital Signs Temp 97.5 F L 07/24/18 16:00 Pulse 60 07/24/18 16:39 Resp 25 H 07/24/18 16:00 BP 141/64 07/24/18 16:00 Pulse Ox 96 07/24/18 16:00 Intake & Output 07/23/18 07/24/18 07/24/18 18:59 06:59 18:59 Intake Total 5235.678 1550.596 441.960 Output Total 936 690 67 Balance 4299.678 860.596 374.960 Weight 117.2 kg 117.2 kg Intake: IV 1200 300 Magnesium Sulfate-D5w Pmx 100 100 1 gm In Dextrose/Water 1 100ml.bag @ 100 mls/hr IVPB Q1H [facility] Rx#: [id number] Sodium Chloride 0.9% 1, 1100 200 000 ml @ 100 mls/hr IV . Q10H [facility] Rx#:[id number] Intake, IV Titration 5235.678 350.596 141.960 Amount Propofol 1,000 mg In 210.678 250.596 141.960 Empty Bag 1 bag @ Titrate IV .Q0M [facility] Rx#: [id number] Sodium Chloride 0.9% 1, 1025 100 000 ml @ 100 mls/hr IV . Q10H [facility] Rx#:[id number] Sodium Chloride 0.9% 1, 4000 000 ml @ 999 mls/hr IV . Q1H1M [facility] Rx#:[id number] Output: Urine 936 690 67 Other: Voiding Method Indwelling Catheter Indwelling Catheter Indwelling Catheter ABP, PAP, CO, CI - Last Documented Arterial Blood Pressure 136/49 - Exam GENERAL: Patient is intubated sedated, orogastric and orotracheal tube are both in place. He is was sedated with propofol. Head exam was generally normal. There was no scleral icterus or corneal arcus. Mucous membranes were moist. HEENT: Pupils are round and equally reacting to light. EOMI. No scleral icterus. No conjunctival pallor. Normocephalic, atraumatic. No pharyngeal erythema. No thyromegaly. CARDIOVASCULAR: Cardiac exam revealed the PMI to be normally situated and sized. The rhythm was regular and no extrasystoles were noted during several minutes of auscultation. The first and second heart sounds were normal and physiologic splitting of the second heart sound was noted. There were no murmurs, rubs, clicks, or gallops. PULMONARY: Lungs were clear to auscultation and percussion, and with normal diaphragmatic excursion. No wheezes or rales were noted. ABDOMEN: Soft, nontender, nondistended, normoactive bowel sounds. No palpable organomegaly. MUSCULOSKELETAL: No joint swelling or deformity. Examination of the extremities revealed easily palpable radial, femoral and pedal pulses. There was no cyanosis, clubbing or edema. NEUROLOGICAL: Unable to assess, yet the neurologic exam is nonfocal and the patient is currently sedated with propofol. SKIN: Examination of the skin revealed no evidence of significant rashes, suspicious appearing nevi or other concerning lesions. - Labs CBC & Chem 7: 07/24/18 04:50 07/24/18 04:50 Labs: Abnormal Lab Results - Last 24 Hours (Table) 07/23/18 07/23/18 07/24/18 Range/Units 20:35 23:40 04:36 Hgb (13.0-17.5) gm/dL Lymphocytes # (1.0-4.8) k/uL ABG pCO2 48 H (35-45) mmHg ABG pO2 73 L (83-108) mmHg ABG HCO3 29 H (21-25) mmol/L ABG Total CO2 30 H (19-24) mmol/L BUN (9-20) mg/dL Glucose (74-99) mg/dL POC Glucose (mg/dL) 130 H (75-99) mg/dL Hyaline Casts 49 H (0-2) /lpf Urine Mucus Rare H (None) /hpf 07/24/18 07/24/18 07/24/18 Range/Units 04:50 04:50 05:29 Hgb 12.3 L (13.0-17.5) gm/dL Lymphocytes # 0.6 L (1.0-4.8) k/uL ABG pCO2 (35-45) mmHg ABG pO2 (83-108) mmHg ABG HCO3 (21-25) mmol/L ABG Total CO2 (19-24) mmol/L BUN 22 H (9-20) mg/dL Glucose 164 H (74-99) mg/dL POC Glucose (mg/dL) 196 H (75-99) mg/dL Hyaline Casts (0-2) /lpf Urine Mucus (None) /hpf 07/24/18 07/24/18 Range/Units 05:30 11:49 Hgb (13.0-17.5) gm/dL Lymphocytes # (1.0-4.8) k/uL ABG pCO2 (35-45) mmHg ABG pO2 (83-108) mmHg ABG HCO3 (21-25) mmol/L ABG Total CO2 (19-24) mmol/L BUN (9-20) mg/dL Glucose (74-99) mg/dL POC Glucose (mg/dL) 142 H 153 H (75-99) mg/dL Hyaline Casts (0-2) /lpf Urine Mucus (None) /hpf Microbiology - Last 24 Hours (Table) 07/23/18 06:38 Gram Stain - Preliminary Sputum Sputum Culture - Preliminary 07/23/18 04:12 Blood Culture - Preliminary Blood No Growth after 24 hours Assessment and Plan Plan: 1 acute respiratory failure, probably an acute on chronic hypercapnic respiratory failure. Exact etiology is not clear. Consider COPD exacerbation. Consider bilateral lower lobe aspiration/pneumonia. Currently intubated on a mechanical ventilator and acid base status and agitation and ventilation support while the patient is on a mechanical ventilator. Empiric antibiotic coverage was also started. The patient is hemodynamically stable 2 CVA, history of 3 history of sick sinus syndrome and the patient is a pacemaker in place 4 paroxysmal atrial fibrillation patient's rhythm is sinus and he is on long- term anticoagulation with Eliquis 5 hypertension 6 BPH 7 dementia 8 progressive debility secondary to above-mentioned comorbidities and the patient has been a long-term resident for the past 6 months at least Plan Keep sedation for now. Monitor hemodynamics. At IV Zosyn. Sputum culture. Blood culture. Repeat blood gases in the morning. Keep the patient on sedation for today. Stop sedation the morning and assess the patient's mental status and assess his ability to wean accordingly. Initiate tube feeds for now. Continue bronchi dilators. Continue steroids. Continue antibiotics. Echo to be done today. We'll continue to follow make further recommendations based on his progress. The case was discussed with the son at the bedside. There is a critically care evaluation was done more than 30 minutes. Case was discussed with the son at the bedside. Time with Patient: Greater than 30
[2018-07-24 18:44] LABS: Glucose,Whole Blood 141 mg/dL (75-99)
--- NOTE | 2018-07-24 18:56 | ECHOF ---
Referral Reason:assess LV function MEASUREMENTS -------- HEIGHT: 180.3 cm WEIGHT: 90.7 kg BP: IVSd: 1.8 cm (0.6 - 1.1) LVIDd: 3.2 cm (3.9 - 5.3) LVPWd: 1.6 cm (0.6 - 1.1) IVSs: 2.2 cm LVIDs: 1.9 cm LVPWs: 2.3 cm RVIDd: 3.7 cm (< 3.3) Ao Diam: 3.4 cm (2.0 - 3.7) LA Diam: 4.9 cm (2.7 - 3.8) AV Cusp: 1.7 cm (1.5 - 2.6) EPSS: 0.5 cm MV E Bret: 1.23 m/s MV DecT: 244 ms MV A Bret: 0.31 m/s MV E/A Ratio: 3.94 AV maxP.87 mmHg AV meanP.20 mmHg RAP: 20.00 mmHg RVSP: 76.15 mmHg MV EF SLOPE: 120.01 mm/s (70 - 150) MV EXCURSION: 23.60 mm (> 18.000) FINDINGS -------- Sinus rhythm. This was a technically good study. The left ventricular size is normal. There is severe concentric left ventricular hypertrophy. Ove rall left ventricular systolic function is normal with, an EF between 55 - 60 %. The right ventricle is mildly enlarged. The left atrium is moderately dilated. The right atrial size is normal. Interatrial and interventricular septum intact. Aortic valve is trileaflet and is mildly thickened. There is mild aortic valve sclerosis. The mitral valve leaflets are mildly thickened. Mild mitral regurgitation is present. Moderate tricuspid regurgitation present. There is moderate to severe pulmonary hypertension. The right ventricular systolic pressure, as measured by Doppler, is 76.15mmHg. There is no pulmonic regurgitation present. The aortic root size is normal. The inferior vena cava is dilated with no significant inspiratory collapse which is consistent estima liane right atrial pressure of >20 mmHg. There is no pericardial effusion. CONCLUSIONS -------- 1. Sinus rhythm. 2. This was a technically good study. 3. The left ventricular size is normal. 4. There is severe concentric left ventricular hypertrophy. 5. Overall left ventricular systolic function is normal with, an EF between 55 - 60 %. 6. The right ventricle is mildly enlarged. 7. The left atrium is moderately dilated. 8. The right atrial size is normal. 9. Interatrial and interventricular septum intact. 10. Aortic valve is trileaflet and is mildly thickened. 11. There is mild aortic valve sclerosis. 12. The mitral valve leaflets are mildly thickened. 13. Mild mitral regurgitation is present. 14. Moderate tricuspid regurgitation present. 15. There is moderate to severe pulmonary hypertension. 16. The right ventricular systolic pressure, as measured by Doppler, is 76.15mmHg. 17. There is no pulmonic regurgitation present. 18. The aortic root size is normal. 19. The inferior vena cava is dilated with no significant inspiratory collapse which is consistent es timated right atrial pressure of >20 mmHg. 20. There is no pericardial effusion. TAILING HAND: Sharri Donahue RDCS
[2018-07-24 23:48] LABS: Glucose,Whole Blood 149 mg/dL (75-99)
[2018-07-25] MEDS: IPRATROPIUM-ALBUTEROL 3 ML NEB INHALATION SCH ×7 (00:05→23:16)
[2018-07-25] MEDS: PROPOFOL 1,000 MG in EMPTY BAG 1 BAG IV SCH ×4 (02:21→18:52)
[2018-07-25] MEDS: PIPERACILLIN-TAZOBACTAM 3.375 GM in SODIUM CHLORIDE 0.9% 100 ML IVPB SCH ×3 (02:21→18:06)
[2018-07-25] MEDS: SODIUM CHLORIDE 0.9% 1,000 ML IV SCH (02:22)
[2018-07-25 04:05] LABS: Basophils % (A) 0 %; Eosinophils % (A) 0 %; HCT 40.7 % (39.0-53.0); HGB 13.1 gm/dL (13.0-17.5); Lymphocytes # (A) 0.4 k/uL (1.0-4.8); Lymphocytes % (A) 3 %; MCH 27.9 pg (25.0-35.0); MCHC 32.2 g/dL (31.0-37.0); MCV 86.8 fL (80.0-100.0); Mean Platelet Volume 7.9; Monocytes # (A) 0.4 k/uL (0-1.0); Monocytes % (A) 3 %; Neutrophils # (A) 10.1 k/uL (1.3-7.7); Neutrophils % (A) 93 %; Platelet Count 185 k/uL (150-450); RBC 4.69 m/uL (4.30-5.90); RDW 13.9 % (11.5-15.5); WBC 10.9 k/uL (3.8-10.6)
[2018-07-25 04:30] LABS: African American GFR (CKD) >90 (>60 ml/min/1.73 sqM); Anion Gap 6 mmol/L; Blood Urea Nitrogen 29 mg/dL (9-20); Calcium 8.4 mg/dL (8.4-10.2); Carbon Dioxide 30 mmol/L (22-30); Chloride 101 mmol/L (98-107); Glucose 153 mg/dL (74-99); Magnesium 2.2 mg/dL (1.6-2.3); Potassium 4.7 mmol/L (3.5-5.1); Sodium 137 mmol/L (137-145)
[2018-07-25 04:54] LABS: ABG Base Excess 6.3 mmol/L; ABG HCO3 31 mmol/L (21-25); ABG Oxygen Saturation 96.7 % (94-97); ABG PCO2 52 mmHg (35-45); ABG PH 7.39 (7.35-7.45); ABG PO2 87 mmHg (83-108); ABG TCO2 33 mmol/L (19-24); Allen Test Performed? Yes
[2018-07-25] MEDS: NOREPINEPHRINE 4 MG in SODIUM CHLORIDE 0.9% 250 ML IV SCH ×2 (06:09→16:54)
[2018-07-25] MEDS: INSULIN ASPART (NovoLOG) 100 UNIT/ML VIAL SQ SCH ×3 (06:27→17:09)
[2018-07-25 06:34] LABS: Glucose,Whole Blood 162 mg/dL (75-99)
[2018-07-25] MEDS ORDERED: FUROSEMIDE 10 MG/ML 4 ML VIAL IV STA ×2 (08:04→16:07)
[2018-07-25] MEDS: HEPARIN SODIUM,PORCINE 5,000 UNIT/ML 1 ML VIAL SQ SCH ×2 (08:17→17:08)
[2018-07-25] MEDS: TAMSULOSIN 0.4 MG CAP.ER.24H PO SCH (08:18)
[2018-07-25] MEDS: PANTOPRAZOLE 40 MG/10 ML VIAL IV SCH (08:18)
[2018-07-25] MEDS: CHLORHEXIDINE GLUCONATE 15 ML CUP MUCOUS MEM SCH ×2 (08:18→21:07)
[2018-07-25] MEDS: METOPROLOL TARTRATE 25 MG TAB PO SCH ×2 (08:19→21:08)
[2018-07-25] MEDS: methylPREDNISolone SOD SUCCI 40 MG/ML 1 ML VIAL IV SCH ×2 (08:19→21:07)
[2018-07-25] MEDS: APIXABAN 2.5 MG TABLET PO SCH ×2 (08:19→21:08)
--- NOTE | 2018-07-25 08:56 | XR ---
EXAMINATION TYPE: XR chest 1V portable DATE OF EXAM: 07/25/2018 COMPARISON: 07/24/2018 HISTORY: Endotracheal tube and enteric tube placement TECHNIQUE: Single frontal view of the chest is obtained. FINDINGS: Bilateral pleural effusions are seen, small with associated bibasilar airspace disease and mild pulmonary vascular congestion that is similar to the prior. Enteric and endotracheal tubes appe ar stable in position. Left-sided central venous catheter is also stable terminating in the high righ t atrium. Post CABG changes the chest are noted. IMPRESSION: Stable exam from the prior of 07/24/2018 with small bilateral pleural effusions and mild pulmonary vascular congestion. Stable lines and tubes.
[2018-07-25 11:15] LABS: ABG HCO3 36 mmol/L (21-25); ABG PCO2 52 mmHg (35-45); ABG PH 7.45 (7.35-7.45); ABG PO2 87 mmHg (83-108); ABG TCO2 38 mmol/L (19-24); Allen Test Performed? Yes
[2018-07-25 11:54] LABS: Glucose,Whole Blood 107 mg/dL (75-99)
--- NOTE | 2018-07-25 13:16 | P.PN ---
Subjective Progress Note Date: 07/25/18 On 07/24/2018 the patient is being seen for a follow-up. Noted the patient is custodial resident. The patient's condition has been gradually decompensating as reported by family members and his son. The patient came into the hospital because of worsening shortness of breath. Initially was taken to the hospital he was placed on a BiPAP. Following his arrival here to the emergency department, the patient was intubated and placed on a mechanical ventilator. The exact cause for the respiratory failure is not clear to me. Seems that the patient went into an acute hypercapnic respiratory failure. This morning, the patient is an assist-control mode of ventilation with a tidal volume of 500 with a rate of 22 and FiO2 of 40% and PEEP of 5. Chest x-ray shows some limited bibasilar pulmonary infiltrates. The airway pressure nonelevated. Blood gas showed a pH of 7.39 with a pCO2 of 48 and pO2 of 73. The patient is afebrile hemodynamically stable. No significant leukocytosis and the white cell count at 8.3. The renal function is within normal limits. Electrodes are also within normal limits. Hemoglobin is at 12.3. White cell count at 8.3. Patient is sedated with propofol and is calm and comfortable. IV Zosyn was added in consultation for aspiration pneumonia. Cultures still pending for now. The patient has history of atrial fibrillation for that reason is maintained on Eliquis. 2 feeds are also to be started. No other significant events otherwise over the past 24 hours. On 07/25/2018 the patient is sedated on propofol and calm and comfortable. He remains on a mechanical ventilator. He remains on a tidal volume of 500 with a rate of 22 and FiO2 of 40% with a PEEP of 5. Chest x-ray showing development of bilateral lower lobe infiltrates/effusion. I noted the patient has been in the significant fluid balance in order more than 8 L over the past 24 hours. I give him a dose of Lasix today. When the process of giving this patient a sedation holiday and willing to assess his mental status. Note that he has underlying dementia. In terms of his blood., The pH is 7.44 with a pCO2 52 and pO2 of 87 and this was on FiO2 of 40%. The patient is covered with IV Zosyn. The patient had negative cultures. Echo of the heart showed no significant abnormalities and the patient is a preserved LV function. The patient was also given enteral feeding for nutritional support. No fever. No chills. The axilla count is at 10.9. Renal function stable. Objective - Vital Signs Vital signs: Vital Signs Temp 99.9 F H 07/25/18 12:00 Pulse 60 07/25/18 12:00 Resp 23 07/25/18 12:00 BP 163/83 07/25/18 12:00 Pulse Ox 94 L 07/25/18 12:00 Intake & Output 07/24/18 07/25/18 07/25/18 18:59 06:59 18:59 Intake Total 3566.722 2004.505 711.872 Output Total 730 832 9850 Balance 0907.824 1995.505 -2388.128 Weight 117.2 kg 119.7 kg Intake: IV 1300 1300 175 Magnesium Sulfate-D5w Pmx 100 1 gm In Dextrose/Water 1 100ml.bag @ 100 mls/hr IVPB Q1H [facility] Rx#: [id number] Piperacillin-Tazobactam 3 100 25 .375 gm In Sodium Chloride 0.9% 100 ml @ 25 mls/hr IVPB Q8H [facility] Rx#: [id number] Sodium Chloride 0.9% 1, 1200 1200 150 000 ml @ 10 mls/hr IV . Q24H [facility] Rx#:[id number] Intake, IV Titration 355.064 368.505 126.872 Amount Piperacillin-Tazobactam 3 100 100 .375 gm In Sodium Chloride 0.9% 100 ml @ 25 mls/hr IVPB Q8H [facility] Rx#: [id number] Propofol 1,000 mg In 255.064 268.505 126.872 Empty Bag 1 bag @ Titrate IV .Q0M [facility] Rx#: [id number] Oral 0 Tube Feeding 60 355 230 Other 30 90 180 Output: Urine 489 215 4431 Other: Voiding Method Indwelling Catheter Indwelling Catheter Indwelling Catheter ABP, PAP, CO, CI - Last Documented Arterial Blood Pressure 145/53 - Exam GENERAL: Patient is intubated sedated, orogastric and orotracheal tube are both in place. He is was sedated with propofol. Head exam was generally normal. There was no scleral icterus or corneal arcus. Mucous membranes were moist. HEENT: Pupils are round and equally reacting to light. EOMI. No scleral icterus. No conjunctival pallor. Normocephalic, atraumatic. No pharyngeal erythema. No thyromegaly. CARDIOVASCULAR: Cardiac exam revealed the PMI to be normally situated and sized. The rhythm was regular and no extrasystoles were noted during several minutes of auscultation. The first and second heart sounds were normal and physiologic splitting of the second heart sound was noted. There were no murmurs, rubs, clicks, or gallops. PULMONARY: Lungs were clear to auscultation and percussion, and with normal diaphragmatic excursion. No wheezes or rales were noted. ABDOMEN: Soft, nontender, nondistended, normoactive bowel sounds. No palpable organomegaly. MUSCULOSKELETAL: No joint swelling or deformity. Examination of the extremities revealed easily palpable radial, femoral and pedal pulses. There was no cyanosis, clubbing or edema. NEUROLOGICAL: Unable to assess, yet the neurologic exam is nonfocal and the patient is currently sedated with propofol. SKIN: Examination of the skin revealed no evidence of significant rashes, suspicious appearing nevi or other concerning lesions. - Labs CBC & Chem 7: 07/25/18 03:55 07/25/18 03:55 Labs: Abnormal Lab Results - Last 24 Hours (Table) 07/24/18 07/24/18 07/25/18 Range/Units 18:33 23:36 03:55 WBC 10.9 H (3.8-10.6) k/uL Neutrophils # 10.1 H (1.3-7.7) k/uL Lymphocytes # 0.4 L (1.0-4.8) k/uL ABG pCO2 (35-45) mmHg ABG HCO3 (21-25) mmol/L ABG Total CO2 (19-24) mmol/L BUN (9-20) mg/dL Glucose (74-99) mg/dL POC Glucose (mg/dL) 141 H 149 H (75-99) mg/dL 07/25/18 07/25/18 07/25/18 Range/Units 03:55 04:52 06:22 WBC (3.8-10.6) k/uL Neutrophils # (1.3-7.7) k/uL Lymphocytes # (1.0-4.8) k/uL ABG pCO2 52 H (35-45) mmHg ABG HCO3 31 H (21-25) mmol/L ABG Total CO2 33 H (19-24) mmol/L BUN 29 H (9-20) mg/dL Glucose 153 H (74-99) mg/dL POC Glucose (mg/dL) 162 H (75-99) mg/dL 07/25/18 07/25/18 Range/Units 11:10 11:33 WBC (3.8-10.6) k/uL Neutrophils # (1.3-7.7) k/uL Lymphocytes # (1.0-4.8) k/uL ABG pCO2 52 H (35-45) mmHg ABG HCO3 36 H (21-25) mmol/L ABG Total CO2 38 H (19-24) mmol/L BUN (9-20) mg/dL Glucose (74-99) mg/dL POC Glucose (mg/dL) 107 H (75-99) mg/dL Microbiology - Last 24 Hours (Table) 07/23/18 06:38 Gram Stain - Final Sputum Sputum Culture - Final 07/23/18 04:12 Blood Culture - Preliminary Blood No Growth after 48 hours Assessment and Plan Plan: 1 acute respiratory failure, probably an acute on chronic hypercapnic respiratory failure. Exact etiology is not clear. Consider COPD exacerbation. Consider bilateral lower lobe aspiration/pneumonia. Currently intubated on a mechanical ventilator and acid base status and agitation and ventilation support while the patient is on a mechanical ventilator. Empiric antibiotic coverage was also started and the patient is on IV Zosyn. Meanwhile the chest x-ray from today shows development of bilateral pleural effusion probably related to aggressive fluid resuscitation. The echo was within normal limits. The patient is afebrile hemodynamically stable. 2 CVA, history of 3 history of sick sinus syndrome and the patient is a pacemaker in place 4 paroxysmal atrial fibrillation patient's rhythm is sinus and he is on long- term anticoagulation with Eliquis 5 hypertension 6 BPH 7 dementia 8 progressive debility secondary to above-mentioned comorbidities and the patient has been a custodial resident for the past 6 months at least Plan The patient Lasix 40 mg of push. Sedation holiday. Assessment status. Checks weaning parameters. Assessment and this to wean. Continue IV Zosyn. At fundi fluids to KVO. Continue bronchodilators. We'll continue to follow. Case was discussed with the family. We may potentially extubated patient or BiPAP at a later stage depending on his overall response. This ventilation was done and more than 30 minutes including discussion with the family at the bedside. This may be potentially difficult wean Data the patient has underlying dementia and he may not follow commands as requested during the weaning process. We'll keep her in a negative fluid balance. We'll offer diuretics over the next 24 hours. Rest of medication were reviewed and no other changes from my standpoint. We'll continue to follow.
--- NOTE | 2018-07-25 14:12 | P.PN ---
Subjective 83-year-old male was admitted for COPD exacerbation acute hypercapnic respiratory failure and patient remains intubated and didn't undergo pain felt today this will be attempted tomorrow. 07/25/2018 Patient failed weaning trial today. Patient is also being treated for aspiration pneumonia with Zosyn. Patient overall prognosis is externally poor patient appears to have advanced dementia had a lengthy discussion with the family with 2 sons in the present at the bedside. Patient overall baseline quality and functionality is externally poor patient is mostly bedbound and wheelchair-bound. Because of this I had a discussion the family regarding comfort care and hospice. Unable to obtain due to patient's clinical condition All inpatient medications were reviewed and appropriate changes in these medications as dictated in the interval history and assessment and plan. Objective - Vital Signs Vital signs: Vital Signs Temp 99.9 F H 07/25/18 12:00 Pulse 60 07/25/18 14:00 Resp 23 07/25/18 14:00 BP 131/66 07/25/18 14:00 Pulse Ox 94 L 07/25/18 14:00 Intake & Output 07/24/18 07/25/18 07/25/18 18:59 06:59 18:59 Intake Total 7751.036 1646.505 895.687 Output Total 768 607 4599 Balance 6752.577 9528.505 -3014.313 Weight 117.2 kg 119.7 kg Intake: IV 1300 1300 245 Magnesium Sulfate-D5w Pmx 100 1 gm In Dextrose/Water 1 100ml.bag @ 100 mls/hr IVPB Q1H [facility] Rx#: [id number] Piperacillin-Tazobactam 3 100 75 .375 gm In Sodium Chloride 0.9% 100 ml @ 25 mls/hr IVPB Q8H [facility] Rx#: [id number] Sodium Chloride 0.9% 1, 1200 1200 170 000 ml @ 10 mls/hr IV . Q24H [facility] Rx#:[id number] Intake, IV Titration 355.064 368.505 160.687 Amount Piperacillin-Tazobactam 3 100 100 .375 gm In Sodium Chloride 0.9% 100 ml @ 25 mls/hr IVPB Q8H [facility] Rx#: [id number] Propofol 1,000 mg In 255.064 268.505 160.687 Empty Bag 1 bag @ Titrate IV .Q0M [facility] Rx#: [id number] Oral 0 Tube Feeding 60 355 310 Other 30 90 180 Output: Urine 080 221 4501 Other: Voiding Method Indwelling Catheter Indwelling Catheter Indwelling Catheter ABP, PAP, CO, CI - Last Documented Arterial Blood Pressure 135/50 - Exam PHYSICAL EXAMINATION: GENERAL: Patient is intubated sedated HEENT: Pupils are round and equally reacting to light. EOMI. No scleral icterus. No conjunctival pallor. Normocephalic, atraumatic. No pharyngeal erythema. No thyromegaly. CARDIOVASCULAR: S1 and S2 present. No murmurs, rubs, or gallops. PULMONARY: Diffuse rhonchi ABDOMEN: Soft, nontender, nondistended, normoactive bowel sounds. No palpable organomegaly. MUSCULOSKELETAL: No joint swelling or deformity. EXTREMITIES: No cyanosis, clubbing, or pedal edema. NEUROLOGICAL: Unable to assess SKIN: No rashes. - Labs CBC & Chem 7: 07/25/18 03:55 07/25/18 03:55 Labs: Abnormal Lab Results - Last 24 Hours (Table) 07/24/18 07/24/18 07/25/18 Range/Units 18:33 23:36 03:55 WBC 10.9 H (3.8-10.6) k/uL Neutrophils # 10.1 H (1.3-7.7) k/uL Lymphocytes # 0.4 L (1.0-4.8) k/uL ABG pCO2 (35-45) mmHg ABG HCO3 (21-25) mmol/L ABG Total CO2 (19-24) mmol/L BUN (9-20) mg/dL Glucose (74-99) mg/dL POC Glucose (mg/dL) 141 H 149 H (75-99) mg/dL 07/25/18 07/25/18 07/25/18 Range/Units 03:55 04:52 06:22 WBC (3.8-10.6) k/uL Neutrophils # (1.3-7.7) k/uL Lymphocytes # (1.0-4.8) k/uL ABG pCO2 52 H (35-45) mmHg ABG HCO3 31 H (21-25) mmol/L ABG Total CO2 33 H (19-24) mmol/L BUN 29 H (9-20) mg/dL Glucose 153 H (74-99) mg/dL POC Glucose (mg/dL) 162 H (75-99) mg/dL 07/25/18 07/25/18 Range/Units 11:10 11:33 WBC (3.8-10.6) k/uL Neutrophils # (1.3-7.7) k/uL Lymphocytes # (1.0-4.8) k/uL ABG pCO2 52 H (35-45) mmHg ABG HCO3 36 H (21-25) mmol/L ABG Total CO2 38 H (19-24) mmol/L BUN (9-20) mg/dL Glucose (74-99) mg/dL POC Glucose (mg/dL) 107 H (75-99) mg/dL Microbiology - Last 24 Hours (Table) 07/23/18 06:38 Gram Stain - Final Sputum Sputum Culture - Final 07/23/18 04:12 Blood Culture - Preliminary Blood No Growth after 48 hours Assessment and Plan Plan: Acute on chronic hypercapnic respiratory failure secondary to COPD exacerbation for which patient will continue with inhalational treatments with ventilatory support and wean off as tolerated. Patient is on Zosyn for possible aspiration pneumonia. Failed weaning trial today, patient will undergo weaning trial again tomorrow -Cerebral vascular accident -Atrial fibrillation, sick sinus syndrome patient has a pacemaker patient is on Eliquis which will be continued -History of CVA in the past -Hypertension Abdomen benign prostatic hypertrophic -Dementia -Generalized deconditioning Patient will need GI prophylaxis pharmacologic
[2018-07-25 17:16] LABS: Glucose,Whole Blood 115 mg/dL (75-99)
[2018-07-25] MEDS ORDERED: Potassium Replacement Protocol 1 EACH MISC MISCELLANE PRN (20:19)
[2018-07-25] MEDS: POTASSIUM CHLORIDE 10 MEQ in WATER FOR INJECTION 1 100ML.BAG IVPB SCH (21:08)
[2018-07-25 23:46] LABS: Glucose,Whole Blood 123 mg/dL (75-99)
[2018-07-26] MEDS: HEPARIN SODIUM,PORCINE 5,000 UNIT/ML 1 ML VIAL SQ SCH ×4 (00:19→23:59)
[2018-07-26] MEDS: POTASSIUM CHLORIDE 10 MEQ in WATER FOR INJECTION 1 100ML.BAG IVPB SCH (00:19)
[2018-07-26] MEDS: PROPOFOL 1,000 MG in EMPTY BAG 1 BAG IV SCH ×6 (00:19→22:14)
[2018-07-26] MEDS: INSULIN ASPART (NovoLOG) 100 UNIT/ML VIAL SQ SCH ×5 (00:20→23:59)
[2018-07-26] MEDS: NOREPINEPHRINE 4 MG in SODIUM CHLORIDE 0.9% 250 ML IV SCH ×2 (02:54→11:03)
[2018-07-26] MEDS: PIPERACILLIN-TAZOBACTAM 3.375 GM in SODIUM CHLORIDE 0.9% 100 ML IVPB SCH ×3 (02:54→18:31)
[2018-07-26] MEDS: IPRATROPIUM-ALBUTEROL 3 ML NEB INHALATION SCH ×6 (03:08→23:18)
[2018-07-26 04:26] LABS: Basophils % (A) 0 %; Eosinophils % (A) 0 %; HCT 38.3 % (39.0-53.0); HGB 12.2 gm/dL (13.0-17.5); Lymphocytes # (A) 0.4 k/uL (1.0-4.8); Lymphocytes % (A) 4 %; MCH 27.7 pg (25.0-35.0); MCHC 31.7 g/dL (31.0-37.0); MCV 87.4 fL (80.0-100.0); Mean Platelet Volume 7.2; Monocytes # (A) 0.4 k/uL (0-1.0); Monocytes % (A) 4 %; Neutrophils # (A) 9.5 k/uL (1.3-7.7); Neutrophils % (A) 91 %; Platelet Count 160 k/uL (150-450); RBC 4.38 m/uL (4.30-5.90); RDW 14.3 % (11.5-15.5); WBC 10.4 k/uL (3.8-10.6)
[2018-07-26 04:35] LABS: African American GFR (CKD) >90 (>60 ml/min/1.73 sqM); Anion Gap 5 mmol/L; Blood Urea Nitrogen 37 mg/dL (9-20); Calcium 8.3 mg/dL (8.4-10.2); Carbon Dioxide 37 mmol/L (22-30); Chloride 96 mmol/L (98-107); Glucose 178 mg/dL (74-99); Magnesium 2.1 mg/dL (1.6-2.3); Phosphorus 3.8 mg/dL (2.5-4.5); Sodium 138 mmol/L (137-145)
[2018-07-26 05:38] LABS: ABG HCO3 38 mmol/L (21-25); ABG Oxygen Saturation 93.9 % (94-97); ABG PCO2 55 mmHg (35-45); ABG PH 7.45 (7.35-7.45); ABG PO2 70 mmHg (83-108); ABG TCO2 40 mmol/L (19-24); Allen Test Performed? Yes
[2018-07-26 05:46] LABS: Glucose,Whole Blood 150 mg/dL (75-99)
[2018-07-26] MEDS: CHLORHEXIDINE GLUCONATE 15 ML CUP MUCOUS MEM SCH ×2 (08:01→19:43)
[2018-07-26] MEDS: methylPREDNISolone SOD SUCCI 40 MG/ML 1 ML VIAL IV SCH ×2 (08:01→20:40)
[2018-07-26] MEDS: APIXABAN 2.5 MG TABLET PO SCH ×2 (08:01→20:40)
[2018-07-26] MEDS: METOPROLOL TARTRATE 25 MG TAB PO SCH ×2 (08:01→20:40)
[2018-07-26] MEDS: TAMSULOSIN 0.4 MG CAP.ER.24H PO SCH (08:02)
[2018-07-26] MEDS: PANTOPRAZOLE 40 MG/10 ML VIAL IV SCH (08:02)
--- NOTE | 2018-07-26 08:32 | XR ---
EXAMINATION TYPE: XR chest 1V portable DATE OF EXAM: 07/26/2018 COMPARISON: 07/25/2018 HISTORY: Shortness of breath, endotracheal tube placement. TECHNIQUE: Single frontal view of the chest is obtained. FINDINGS: There are small bilateral layering pleural effusions an associated bibasilar airspace dise ase, again similar to the prior. Endotracheal tube and enteric tube are unchanged. 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 Left subclavian approach central venous catheter terminates in the high right atrium. No new pneumothorax is seen. Degenerative changes of the spine are present. IMPRESSION: Again there is stability of exam from the prior with small bilateral pleural effusions, minimal pulmonary vascular congestions and bibasilar airspace disease.
[2018-07-26] MEDS ORDERED: FUROSEMIDE 10 MG/ML 4 ML VIAL IV STA (08:44)
[2018-07-26] MEDS: CLEVIDIPINE BUTYRATE 25 MG in EMPTY BAG 1 BAG IV SCH ×2 (09:32→11:07)
[2018-07-26 11:01] LABS: Glucose,Whole Blood 123 mg/dL (75-99)
[2018-07-26] MEDS: ACETAMINOPHEN IV (For NPO) 1,000 MG in EMPTY BAG 1 BAG IVPB PRN (11:15)
[2018-07-26] MEDS: POLYETHYLENE GLYCOL 3350 17 GM POWD.PACK PO SCH (12:41)
[2018-07-26] MEDS: SENNOSIDES 8.6 MG TAB PO SCH (12:41)
--- NOTE | 2018-07-26 15:00 | P.PN ---
Subjective Progress Note Date: 07/26/18 On 07/24/2018 the patient is being seen for a follow-up. Noted the patient is long-term resident. The patient's condition has been gradually decompensating as reported by family members and his son. The patient came into the hospital because of worsening shortness of breath. Initially was taken to the hospital he was placed on a BiPAP. Following his arrival here to the emergency department, the patient was intubated and placed on a mechanical ventilator. The exact cause for the respiratory failure is not clear to me. Seems that the patient went into an acute hypercapnic respiratory failure. This morning, the patient is an assist-control mode of ventilation with a tidal volume of 500 with a rate of 22 and FiO2 of 40% and PEEP of 5. Chest x-ray shows some limited bibasilar pulmonary infiltrates. The airway pressure nonelevated. Blood gas showed a pH of 7.39 with a pCO2 of 48 and pO2 of 73. The patient is afebrile hemodynamically stable. No significant leukocytosis and the white cell count at 8.3. The renal function is within normal limits. Electrodes are also within normal limits. Hemoglobin is at 12.3. White cell count at 8.3. Patient is sedated with propofol and is calm and comfortable. IV Zosyn was added in consultation for aspiration pneumonia. Cultures still pending for now. The patient has history of atrial fibrillation for that reason is maintained on Eliquis. 2 feeds are also to be started. No other significant events otherwise over the past 24 hours. On 07/25/2018 the patient is sedated on propofol and calm and comfortable. He remains on a mechanical ventilator. He remains on a tidal volume of 500 with a rate of 22 and FiO2 of 40% with a PEEP of 5. Chest x-ray showing development of bilateral lower lobe infiltrates/effusion. I noted the patient has been in the significant fluid balance in order more than 8 L over the past 24 hours. I give him a dose of Lasix today. When the process of giving this patient a sedation holiday and willing to assess his mental status. Note that he has underlying dementia. In terms of his blood., The pH is 7.44 with a pCO2 52 and pO2 of 87 and this was on FiO2 of 40%. The patient is covered with IV Zosyn. The patient had negative cultures. Echo of the heart showed no significant abnormalities and the patient is a preserved LV function. The patient was also given enteral feeding for nutritional support. No fever. No chills. The axilla count is at 10.9. Renal function stable. On 07/26/2018 the patient was seen in follow-up and had a lengthy discussion with the patient's family. It is clear to me. The patient has been progressively getting worse and the patient has been having impairment in the cognitive functions over the years especially over the past several months. For the past few weeks the patient has been bedridden and the patient has not been able to ambulate. Subsequently became progressively more short of breath and he end up an acute hypoxic and hypercapnic respiratory failure. I want to wean this patient and extubated him to a BiPAP today. For that reason, I kept on the sedation earlier this morning. As the patient was coming off the sedation he became progressively more hypotensive. He got to the point where he did follow some simple commands however he was not doing it consistently and he was not following commands. Weaning parameters were checked and the parameters were extremely poor. The patient's rapid shallow breathing index was above 200 and he was barely taking tidal volumes 100 mL while being on a spontaneous breathing trial with a pressure support of 5 and a PEEP of 5. I was contemplating to extubate the patient or BiPAP. Nevertheless, after observing his very poor weaning parameters, I decided not to. I continue diuretics. The patient is in a negative fluid balance. Is producing excess amount of urine output. He did have a low-grade fever today however he is on Zosyn. Chest x-ray is showing lower lobe pulmonary infiltrates and effusions. White cell count is at 10.4 with a hemoglobin of 12.2. Function is stable with a creatinine of 0.8. Morning blood gases showed a pH of 7.45 with a pCO2 of 55 and a PaO2 of 70 while being on assist control mode of ventilation with a tidal volume of 450 with an FiO2 of 40% and PEEP of 5 and the rate of 22. I noted some elevation his peak airway pressure. I dropped his tidal volume to 400. After being given a sedation holiday, the patient was unable to demonstrate adequate weaning parameters and the patient was becoming more anxious and restless. At that point he was placed back on propofol at 25 g. Blood cultures negative. He remains on DuoNeb nebulized treatments around the clock. He is on IV Solu- Medrol. Side effects was also used to control his blood pressure and currently it is off. Note that he had an acute hypersensitivity reaction while being off sedation. He remains on IV Zosyn. All of the cultures of been negative for now. Echo shows a preserved LV function. Family is at the bedside. Objective - Vital Signs Vital signs: Vital Signs Temp 100.9 F H 07/26/18 12:00 Pulse 60 07/26/18 14:00 Resp 30 H 07/26/18 14:00 BP 138/70 07/26/18 14:00 Pulse Ox 95 07/26/18 14:00 Intake & Output 07/25/18 07/26/18 07/26/18 18:59 06:59 18:59 Intake Total 7225.855 7469.225 791.341 Output Total 4975 1950 1400 Balance -3669.313 -496.775 -608.659 Weight 116.7 kg Intake: IV 335 424 202 .9 pressure bag 69 42 Piperacillin-Tazobactam 3 125 35 100 .375 gm In Sodium Chloride 0.9% 100 ml @ 25 mls/hr IVPB Q8H [facility] Rx#: [id number] Potassium Chloride 10 meq 200 In Water For Injection 1 100ml.bag @ 100 mls/hr IVPB Q1H [facility] Rx#: [id number] Sodium Chloride 0.9% 1, 210 120 60 000 ml @ 10 mls/hr IV . Q24H [facility] Rx#:[id number] Intake, IV Titration 260.687 233.225 67.341 Amount Clevidipine Butyrate 25 43.301 mg In Empty Bag 1 bag @ 1 MG/HR 2 mls/hr IV .Q24H [facility] Rx#:[id number] Propofol 1,000 mg In 260.687 233.225 24.040 Empty Bag 1 bag @ Titrate IV .Q0M [facility] Rx#: [id number] Oral 0 0 Tube Feeding 500 706 342 Other 210 90 180 Output: Urine 4975 1950 1400 Other: Voiding Method Indwelling Catheter Indwelling Catheter Indwelling Catheter ABP, PAP, CO, CI - Last Documented Arterial Blood Pressure 149/56 - Exam GENERAL: Patient is intubated sedated, orogastric and orotracheal tube are both in place. He is was sedated with propofol. Head exam was generally normal. There was no scleral icterus or corneal arcus. Mucous membranes were moist. HEENT: Pupils are round and equally reacting to light. EOMI. No scleral icterus. No conjunctival pallor. Normocephalic, atraumatic. No pharyngeal erythema. No thyromegaly. CARDIOVASCULAR: Cardiac exam revealed the PMI to be normally situated and sized. The rhythm was regular and no extrasystoles were noted during several minutes of auscultation. The first and second heart sounds were normal and physiologic splitting of the second heart sound was noted. There were no murmurs, rubs, clicks, or gallops. PULMONARY: Lungs were clear to auscultation and percussion, and with normal nahed phragmatic excursion. No wheezes or rales were noted. ABDOMEN: Soft, nontender, nondistended, normoactive bowel sounds. No palpable organomegaly. MUSCULOSKELETAL: No joint swelling or deformity. Examination of the extremities revealed easily palpable radial, femoral and pedal pulses. There was no cyanosis, clubbing or edema. NEUROLOGICAL: Unable to assess, yet the neurologic exam is nonfocal and the patient is currently sedated with propofol. SKIN: Examination of the skin revealed no evidence of significant rashes, suspicious appearing nevi or other concerning lesions. - Labs CBC & Chem 7: 07/26/18 04:00 07/26/18 04:00 Labs: Abnormal Lab Results - Last 24 Hours (Table) 07/25/18 07/25/18 07/26/18 Range/Units 17:02 23:35 04:00 Hgb 12.2 L (13.0-17.5) gm/dL Hct 38.3 L (39.0-53.0) % Neutrophils # 9.5 H (1.3-7.7) k/uL Lymphocytes # 0.4 L (1.0-4.8) k/uL ABG pCO2 (35-45) mmHg ABG pO2 (83-108) mmHg ABG HCO3 (21-25) mmol/L ABG Total CO2 (19-24) mmol/L ABG O2 Saturation (94-97) % Chloride (98-107) mmol/L Carbon Dioxide (22-30) mmol/L BUN (9-20) mg/dL Glucose (74-99) mg/dL POC Glucose (mg/dL) 115 H 123 H (75-99) mg/dL Calcium (8.4-10.2) mg/dL 07/26/18 07/26/18 07/26/18 Range/Units 04:00 05:34 05:35 Hgb (13.0-17.5) gm/dL Hct (39.0-53.0) % Neutrophils # (1.3-7.7) k/uL Lymphocytes # (1.0-4.8) k/uL ABG pCO2 55 H (35-45) mmHg ABG pO2 70 L (83-108) mmHg ABG HCO3 38 H (21-25) mmol/L ABG Total CO2 40 H (19-24) mmol/L ABG O2 Saturation 93.9 L (94-97) % Chloride 96 L (98-107) mmol/L Carbon Dioxide 37 H (22-30) mmol/L BUN 37 H (9-20) mg/dL Glucose 178 H (74-99) mg/dL POC Glucose (mg/dL) 150 H (75-99) mg/dL Calcium 8.3 L (8.4-10.2) mg/dL 07/26/18 Range/Units 10:50 Hgb (13.0-17.5) gm/dL Hct (39.0-53.0) % Neutrophils # (1.3-7.7) k/uL Lymphocytes # (1.0-4.8) k/uL ABG pCO2 (35-45) mmHg ABG pO2 (83-108) mmHg ABG HCO3 (21-25) mmol/L ABG Total CO2 (19-24) mmol/L ABG O2 Saturation (94-97) % Chloride (98-107) mmol/L Carbon Dioxide (22-30) mmol/L BUN (9-20) mg/dL Glucose (74-99) mg/dL POC Glucose (mg/dL) 123 H (75-99) mg/dL Calcium (8.4-10.2) mg/dL Microbiology - Last 24 Hours (Table) 07/23/18 04:12 Blood Culture - Preliminary Blood No Growth after 72 hours Assessment and Plan Plan: 1 acute respiratory failure, probably an acute on chronic hypercapnic respiratory failure. The patient was treated for an acute COPD exacerbation. He was given accommodation bronchodilators and steroids. Chest x-ray from yesterday and today showed development of lower lobe infiltrate and effusion. Based on that the patient was started on diuretics. Nevertheless, after being given a sedation holiday, the patient's weaning parameters were extremely poor and the patient was barely generating a tidal volume 180 with a rapid shallow breathing index of above 200s. As such, there was no room for any further weaning. 2 CVA, history of 3 history of sick sinus syndrome and the patient is a pacemaker in place 4 paroxysmal atrial fibrillation patient's rhythm is sinus and he is on long- term anticoagulation with Eliquis 5 hypertension 6 BPH 7 dementia 8 progressive debility secondary to above-mentioned comorbidities and the abdias ent has been a long-term resident for the past 6 months at least Plan Unfortunately, this going to be a difficult wean. The patient has significant cognitive impairment secondary to underlying dementia. He seems to be quite weak and he's weaning thousand extremely poor. In addition he has COPD with seems to be quite advanced and the patient is a component of chronic hypoxic and hypercapnic respiratory failure. Based on all this, he was unable to demonstrate adequate weaning parameters on today's evaluation. I did not extubate the patient. I was contemplating extubating him to BiPAP however I thought I would also feel that intervention. The family is coming to get at this site on his CODE STATUS. I've made recommendations that he is to change him to a CODE STATUS of DO NOT INTUBATE if he fails a extubation efforts. It final decision has not been done yet. The son who is very well aware of his condition, that his condition has been poor and he was progressively declining a nd he end up in a long-term and more recently was quite sedentary in bed rhythm. For now, more family is to arrive. That she was essentially supportive. We'll keep him sedated for now. We'll start him on tube feeds again. Continue bronchodilators. No need for further diuretics as the patient is diuresed adequately. Repeat chest x-ray in the morning. Blood gases the morning. Monitor fever pattern. We'll continue to follow. Condition is critical. This examination was done and more than 30 minutes. Time with Patient: Greater than 30
--- NOTE | 2018-07-26 15:04 | P.PN ---
Subjective 83-year-old male was admitted for COPD exacerbation acute hypercapnic respiratory failure and patient remains intubated and didn't undergo pain felt today this will be attempted tomorrow. 07/25/2018 Patient failed weaning trial today. Patient is also being treated for aspiration pneumonia with Zosyn. Patient overall prognosis is externally poor patient appears to have advanced dementia had a lengthy discussion with the family with 2 sons in the present at the bedside. Patient overall baseline quality and functionality is externally poor patient is mostly bedbound and wheelchair-bound. Because of this I had a discussion the family regarding comfort care and hospice. 07/26/2018 Patient failed extubation again today discussion regarding hospice was made with family again today. Patient started having high-grade fever patient is already on Zosyn may need to add vancomycin Unable to obtain due to patient's clinical condition All inpatient medications were reviewed and appropriate changes in these medications as dictated in the interval history and assessment and plan. Objective - Vital Signs Vital signs: Vital Signs Temp 100.9 F H 07/26/18 12:00 Pulse 60 07/26/18 14:00 Resp 30 H 07/26/18 14:00 BP 138/70 07/26/18 14:00 Pulse Ox 95 07/26/18 14:00 Intake & Output 07/25/18 07/26/18 07/26/18 18:59 06:59 18:59 Intake Total 3024.981 0586.225 791.341 Output Total 4975 1950 1400 Balance -3669.313 -496.775 -608.659 Weight 116.7 kg Intake: IV 335 424 202 .9 pressure bag 69 42 Piperacillin-Tazobactam 3 125 35 100 .375 gm In Sodium Chloride 0.9% 100 ml @ 25 mls/hr IVPB Q8H [facility] Rx#: [id number] Potassium Chloride 10 meq 200 In Water For Injection 1 100ml.bag @ 100 mls/hr IVPB Q1H [facility] Rx#: [id number] Sodium Chloride 0.9% 1, 210 120 60 000 ml @ 10 mls/hr IV . Q24H [facility] Rx#:[id number] Intake, IV Titration 260.687 233.225 67.341 Amount Clevidipine Butyrate 25 43.301 mg In Empty Bag 1 bag @ 1 MG/HR 2 mls/hr IV .Q24H [facility] Rx#:[id number] Propofol 1,000 mg In 260.687 233.225 24.040 Empty Bag 1 bag @ Titrate IV .Q0M [facility] Rx#: [id number] Oral 0 0 Tube Feeding 500 706 342 Other 210 90 180 Output: Urine 4975 1950 1400 Other: Voiding Method Indwelling Catheter Indwelling Catheter Indwelling Catheter ABP, PAP, CO, CI - Last Documented Arterial Blood Pressure 149/56 - Exam PHYSICAL EXAMINATION: GENERAL: Patient is intubated sedated HEENT: Pupils are round and equally reacting to light. EOMI. No scleral icterus. No conjunctival pallor. Normocephalic, atraumatic. No pharyngeal erythema. No thyromegaly. CARDIOVASCULAR: S1 and S2 present. No murmurs, rubs, or gallops. PULMONARY: Diffuse rhonchi ABDOMEN: Soft, nontender, nondistended, normoactive bowel sounds. No palpable organomegaly. MUSCULOSKELETAL: No joint swelling or deformity. EXTREMITIES: No cyanosis, clubbing, or pedal edema. NEUROLOGICAL: Unable to assess SKIN: No rashes. - Labs CBC & Chem 7: 07/26/18 04:00 07/26/18 04:00 Labs: Abnormal Lab Results - Last 24 Hours (Table) 07/25/18 07/25/18 07/26/18 Range/Units 17:02 23:35 04:00 Hgb 12.2 L (13.0-17.5) gm/dL Hct 38.3 L (39.0-53.0) % Neutrophils # 9.5 H (1.3-7.7) k/uL Lymphocytes # 0.4 L (1.0-4.8) k/uL ABG pCO2 (35-45) mmHg ABG pO2 (83-108) mmHg ABG HCO3 (21-25) mmol/L ABG Total CO2 (19-24) mmol/L ABG O2 Saturation (94-97) % Chloride (98-107) mmol/L Carbon Dioxide (22-30) mmol/L BUN (9-20) mg/dL Glucose (74-99) mg/dL POC Glucose (mg/dL) 115 H 123 H (75-99) mg/dL Calcium (8.4-10.2) mg/dL 07/26/18 07/26/18 07/26/18 Range/Units 04:00 05:34 05:35 Hgb (13.0-17.5) gm/dL Hct (39.0-53.0) % Neutrophils # (1.3-7.7) k/uL Lymphocytes # (1.0-4.8) k/uL ABG pCO2 55 H (35-45) mmHg ABG pO2 70 L (83-108) mmHg ABG HCO3 38 H (21-25) mmol/L ABG Total CO2 40 H (19-24) mmol/L ABG O2 Saturation 93.9 L (94-97) % Chloride 96 L (98-107) mmol/L Carbon Dioxide 37 H (22-30) mmol/L BUN 37 H (9-20) mg/dL Glucose 178 H (74-99) mg/dL POC Glucose (mg/dL) 150 H (75-99) mg/dL Calcium 8.3 L (8.4-10.2) mg/dL 07/26/18 Range/Units 10:50 Hgb (13.0-17.5) gm/dL Hct (39.0-53.0) % Neutrophils # (1.3-7.7) k/uL Lymphocytes # (1.0-4.8) k/uL ABG pCO2 (35-45) mmHg ABG pO2 (83-108) mmHg ABG HCO3 (21-25) mmol/L ABG Total CO2 (19-24) mmol/L ABG O2 Saturation (94-97) % Chloride (98-107) mmol/L Carbon Dioxide (22-30) mmol/L BUN (9-20) mg/dL Glucose (74-99) mg/dL POC Glucose (mg/dL) 123 H (75-99) mg/dL Calcium (8.4-10.2) mg/dL Microbiology - Last 24 Hours (Table) 07/23/18 04:12 Blood Culture - Preliminary Blood No Growth after 72 hours Assessment and Plan Plan: Acute on chronic hypercapnic respiratory failure secondary to COPD exacerbation for which patient will continue with inhalational treatments with ventilatory support and wean off as tolerated. Patient is on Zosyn for possible aspiration pneumonia, patient started having fevers vancomycin was added to cover gram- positive organisms including Staphylococcus. Failed weaning trial today, patient will undergo weaning trial again tomorrow -Cerebral vascular accident -Atrial fibrillation, sick sinus syndrome patient has a pacemaker patient is on Eliquis which will be continued -History of CVA in the past -Hypertension Abdomen benign prostatic hypertrophic -Dementia -Generalized deconditioning Patient will need GI prophylaxis pharmacologic
[2018-07-26] MEDS ORDERED: VANCOMYCIN IV PER PHARMACY 1 EACH MISC MISCELLANE PRN (15:17)
[2018-07-26] MEDS ORDERED: VANCOMYCIN 2,000 MG in SODIUM CHLORIDE 0.9% 500 ML 500 ML IVPB ONE (16:00)
[2018-07-26 17:36] LABS: Glucose,Whole Blood 130 mg/dL (75-99)
[2018-07-26] MEDS: SODIUM CHLORIDE 0.9% 1,000 ML IV SCH (18:31)
[2018-07-26 23:51] LABS: Glucose,Whole Blood 125 mg/dL (75-99)
[2018-07-27] MEDS: PROPOFOL 1,000 MG in EMPTY BAG 1 BAG IV SCH ×2 (01:04→05:40)
[2018-07-27] MEDS: PIPERACILLIN-TAZOBACTAM 3.375 GM in SODIUM CHLORIDE 0.9% 100 ML IVPB SCH ×3 (02:45→18:59)
[2018-07-27] MEDS: IPRATROPIUM-ALBUTEROL 3 ML NEB INHALATION SCH ×5 (03:11→19:49)
[2018-07-27 03:23] LABS: Glucose,Whole Blood 129 mg/dL (75-99)
[2018-07-27 03:54] LABS: Basophils % (A) 0 %; Eosinophils # (A) 0.1 k/uL (0-0.7); Eosinophils % (A) 1 %; HCT 41.5 % (39.0-53.0); HGB 12.6 gm/dL (13.0-17.5); Hypochromasia Slight; Lymphocytes # (A) 0.6 k/uL (1.0-4.8); Lymphocytes % (A) 7 %; MCH 26.8 pg (25.0-35.0); MCHC 30.4 g/dL (31.0-37.0); MCV 88.4 fL (80.0-100.0); Mean Platelet Volume 7.6; Monocytes # (A) 0.3 k/uL (0-1.0); Monocytes % (A) 3 %; Neutrophils # (A) 8.6 k/uL (1.3-7.7); Neutrophils % (A) 89 %; Platelet Count 159 k/uL (150-450); RBC 4.69 m/uL (4.30-5.90); RDW 15.6 % (11.5-15.5); WBC 9.7 k/uL (3.8-10.6)
[2018-07-27] MEDS: VANCOMYCIN 1,750 MG in SODIUM CHLORIDE 0.9% 500 ML 500 ML IVPB SCH ×2 (04:28→16:55)
[2018-07-27 04:37] LABS: Allen Test Performed? Yes
[2018-07-27 04:38] LABS: ABG Base Excess 16.3 mmol/L; ABG Oxygen Saturation 94.9 % (94-97); ABG PCO2 58 mmHg (35-45); ABG PH 7.45 (7.35-7.45); ABG PO2 75 mmHg (83-108); ABG TCO2 42 mmol/L (19-24)
[2018-07-27 04:41] LABS: ABG HCO3 40 mmol/L (21-25)
[2018-07-27 04:49] LABS: African American GFR (CKD) >90 (>60 ml/min/1.73 sqM); Anion Gap 2 mmol/L; Blood Urea Nitrogen 40 mg/dL (9-20); Calcium 8.2 mg/dL (8.4-10.2); Carbon Dioxide 38 mmol/L (22-30); Chloride 98 mmol/L (98-107); Glucose 148 mg/dL (74-99); Magnesium 2.1 mg/dL (1.6-2.3); Potassium 4.1 mmol/L (3.5-5.1); Sodium 138 mmol/L (137-145)
[2018-07-27] MEDS: INSULIN ASPART (NovoLOG) 100 UNIT/ML VIAL SQ SCH ×4 (06:00→23:51)
[2018-07-27 06:07] LABS: Glucose,Whole Blood 125 mg/dL (75-99)
--- NOTE | 2018-07-27 07:16 | XR ---
EXAMINATION TYPE: XR chest 1V portable DATE OF EXAM: 07/27/2018 COMPARISON: 07/25/2018 HISTORY: Tube placement TECHNIQUE: Single frontal view of the chest is obtained. FINDINGS: Bilateral consolidation and pleural effusion. ET and NG tube stable. Postoperative change and left-sided central line. Diffuse interstitial pattern. No pneumothorax. IMPRESSION: Bilateral infiltrate and pleural effusion are stable correlate for CHF.
[2018-07-27] MEDS: HEPARIN SODIUM,PORCINE 5,000 UNIT/ML 1 ML VIAL SQ SCH ×3 (08:45→23:55)
[2018-07-27] MEDS: CHLORHEXIDINE GLUCONATE 15 ML CUP MUCOUS MEM SCH (08:45)
[2018-07-27] MEDS: FUROSEMIDE 10 MG/ML 4 ML VIAL IV SCH ×2 (08:45→20:04)
[2018-07-27] MEDS: SENNOSIDES 8.6 MG TAB PO SCH (08:45)
[2018-07-27] MEDS: methylPREDNISolone SOD SUCCI 40 MG/ML 1 ML VIAL IV SCH ×2 (08:45→20:04)
[2018-07-27] MEDS: PANTOPRAZOLE 40 MG/10 ML VIAL IV SCH (08:45)
[2018-07-27] MEDS: APIXABAN 2.5 MG TABLET PO SCH ×2 (08:45→20:58)
[2018-07-27] MEDS: TAMSULOSIN 0.4 MG CAP.ER.24H PO SCH (08:46)
[2018-07-27] MEDS: METOPROLOL TARTRATE 25 MG TAB PO SCH ×2 (08:46→20:59)
[2018-07-27 10:55] VITALS: BMI 34.9
[2018-07-27 12:02] LABS: Glucose,Whole Blood 120 mg/dL (75-99)
[2018-07-27] MEDS: POLYETHYLENE GLYCOL 3350 17 GM POWD.PACK PO SCH (12:50)
[2018-07-27] MEDS: NOREPINEPHRINE 4 MG in SODIUM CHLORIDE 0.9% 250 ML IV SCH ×3 (12:51)
--- NOTE | 2018-07-27 15:04 | P.PN ---
Subjective Progress Note Date: 07/27/18 On 07/24/2018 the patient is being seen for a follow-up. Noted the patient is [facility] resident. The patient's condition has been gradually decompensating as reported by family members and his son. The patient came into the hospital because of worsening shortness of breath. Initially was taken to the hospital he was placed on a BiPAP. Following his arrival here to the emergency department, the patient was intubated and placed on a mechanical ventilator. The exact cause for the respiratory failure is not clear to me. Seems that the patient went into an acute hypercapnic respiratory failure. This morning, the patient is an assist-control mode of ventilation with a tidal volume of 500 with a rate of 22 and FiO2 of 40% and PEEP of 5. Chest x-ray shows some limited bibasilar pulmonary infiltrates. The airway pressure nonelevated. Blood gas showed a pH of 7.39 with a pCO2 of 48 and pO2 of 73. The patient is afebrile hemodynamically stable. No significant leukocytosis and the white cell count at 8.3. The renal function is within normal limits. Electrodes are also within normal limits. Hemoglobin is at 12.3. White cell count at 8.3. Patient is sedated with propofol and is calm and comfortable. IV Zosyn was added in consultation for aspiration pneumonia. Cultures still pending for now. The patient has history of atrial fibrillation for that reason is maintained on Eliquis. 2 feeds are also to be started. No other significant events otherwise over the past 24 hours. On 07/25/2018 the patient is sedated on propofol and calm and comfortable. He remains on a mechanical ventilator. He remains on a tidal volume of 500 with a rate of 22 and FiO2 of 40% with a PEEP of 5. Chest x-ray showing development of bilateral lower lobe infiltrates/effusion. I noted the patient has been in the significant fluid balance in order more than 8 L over the past 24 hours. I give him a dose of Lasix today. When the process of giving this patient a sedation holiday and willing to assess his mental status. Note that he has underlying dementia. In terms of his blood., The pH is 7.44 with a pCO2 52 and pO2 of 87 and this was on FiO2 of 40%. The patient is covered with IV Zosyn. The patient had negative cultures. Echo of the heart showed no significant abnormalities and the patient is a preserved LV function. The patient was also given enteral feeding for nutritional support. No fever. No chills. The axilla count is at 10.9. Renal function stable. On 07/26/2018 the patient was seen in follow-up and had a lengthy discussion with the patient's family. It is clear to me. The patient has been progressively getting worse and the patient has been having impairment in the cognitive functions over the years especially over the past several months. For the past few weeks the patient has been bedridden and the patient has not been able to ambulate. Subsequently became progressively more short of breath and he end up an acute hypoxic and hypercapnic respiratory failure. I want to wean this patient and extubated him to a BiPAP today. For that reason, I kept on the sedation earlier this morning. As the patient was coming off the sedation he became progressively more hypotensive. He got to the point where he did follow some simple commands however he was not doing it consistently and he was not following commands. Weaning parameters were checked and the parameters were extremely poor. The patient's rapid shallow breathing index was above 200 and he was barely taking tidal volumes 100 mL while being on a spontaneous breathing trial with a pressure support of 5 and a PEEP of 5. I was contemplating to extubate the patient or BiPAP. Nevertheless, after observing his very poor weaning parameters, I decided not to. I continue diuretics. The patient is in a negative fluid balance. Is producing excess amount of urine output. He did have a low-grade fever today however he is on Zosyn. Chest x-ray is showing lower lobe pulmonary infiltrates and effusions. White cell count is at 10.4 with a hemoglobin of 12.2. Function is stable with a creatinine of 0.8. Morning blood gases showed a pH of 7.45 with a pCO2 of 55 and a PaO2 of 70 while being on assist control mode of ventilation with a tidal volume of 450 with an FiO2 of 40% and PEEP of 5 and the rate of 22. I noted some elevation his peak airway pressure. I dropped his tidal volume to 400. After being given a sedation holiday, the patient was unable to demonstrate adequate weaning parameters and the patient was becoming more anxious and restless. At that point he was placed back on propofol at 25 g. Blood cultures negative. He remains on DuoNeb nebulized treatments around the clock. He is on IV Solu- Medrol. Side effects was also used to control his blood pressure and currently it is off. Note that he had an acute hypersensitivity reaction while being off sedation. He remains on IV Zosyn. All of the cultures of been negative for now. Echo shows a preserved LV function. Family is at the bedside. On 07/27/2018 I'm seeing this patient for a follow-up. I was not able to do any weaning trials yesterday as the patient had very poor weaning parameters. After take this patient off sedation, I switched him to a pressure support of 5 and a PEEP of 5. His tidal volumes were barely above 200. He was becoming more restless and agitated hypertensive and tachypneic. I told that this will be a complete failure and for that reason I did not extubate the patient. The same process was done today. After taking the patient off sedation, I was able to measure the weaning parameters that were very poor. The patient was unable to generate tidal volumes above 200. His respiratory rate was quite elevated in the 40s. Rapid shallow breathing index was also high. Based on this, I put the patient back on assist control mode of ventilation currently is on low-dose sedation with propofol negative at a dose of 50 g per KG per minute. His chest x-ray showed bilateral lower lobe infiltrate and pleural effusion. The patient was restarted back on Lasix and the patient is currently receiving 40 mg every 12 hours and the patient's urine output is excellent and he is a negative fluid balance for now. He was having low-grade fever and he is currently afebrile. He is on IV Zosyn. Vancomycin was also added to the regimen. In terms of his COPD, he is not having any signs of bronchospasm wheezing. He is on DuoNeb nebulized treatments around the clock. He is also on IV Solu-Medrol 40 mg 212 hours. He is getting tube feeds for now and is able to tolerated his feeds without any major difficulties. I the next discussion with the family. This is obvious to going to be a difficult wean as mentioned earlier. The patient advanced dementia. The patient was quite debilitated prior to this and he was bedridden. He is extremely weak and he's chances of a successful extubation is quite low. One option is to consider tracheostomy and long-term vent support and wean if possible. The other option is extubation to BiPAP and decided accordingly with the option of no reintubation and comfort care measures should he fail. I think the family is interested second option. Atelectatic discussion with them. There are was not interested in long-term mechanical ventilation vent support. They are aware that the patient's condition is poor and he would like to give him a chance with extubation to BiPAP and decided accordingly. For now the plan is to extubate this patient later stage once more family members are available to bedside. Objective - Vital Signs Vital signs: Vital Signs Temp 97.5 F L 07/27/18 08:00 Pulse 62 07/27/18 12:20 Resp 20 07/27/18 10:00 BP 154/80 07/27/18 10:00 Pulse Ox 94 L 07/27/18 10:00 Intake & Output 07/26/18 07/27/18 07/27/18 18:59 06:59 18:59 Intake Total 8963.937 8888.505 442.284 Output Total 5992 551 5652 Balance 47.923 1248.505 -1482.716 Weight 117.1 kg 117.1 kg Intake: IV 766 892 16 .9 pressure bag 66 72 6 Piperacillin-Tazobactam 3 100 200 .375 gm In Sodium Chloride 0.9% 100 ml @ 25 mls/hr IVPB Q8H [facility] Rx#: [id number] Sodium Chloride 0.9% 1, 100 120 10 000 ml @ 10 mls/hr IV . Q24H [facility] Rx#:[id number] Vancomycin 2,000 mg In 500 500 Sodium Chloride 0.9% 500 ml 500 ml @ 167 mls/hr IVPB ONCE ONE Rx#: [id number] Intake, IV Titration 205.923 204.505 54.284 Amount Clevidipine Butyrate 25 43.301 mg In Empty Bag 1 bag @ 1 MG/HR 2 mls/hr IV .Q24H [facility] Rx#:[id number] Propofol 1,000 mg In 162.622 204.505 54.284 Empty Bag 1 bag @ Titrate IV .Q0M [facility] Rx#: [id number] Tube Feeding 741 912 312 Other 210 90 60 Output: Urine 4885 409 8791 Other: Voiding Method Indwelling Catheter Indwelling Catheter Indwelling Catheter ABP, PAP, CO, CI - Last Documented Arterial Blood Pressure 181/70 - Exam GENERAL: Patient is intubated sedated, orogastric and orotracheal tube are both in place. He is was sedated with propofol. Head exam was generally normal. There was no scleral icterus or corneal arcus. Mucous membranes were moist. HEENT: Pupils are round and equally reacting to light. EOMI. No scleral icterus. No conjunctival pallor. Normocephalic, atraumatic. No pharyngeal erythema. No thyromegaly. CARDIOVASCULAR: Cardiac exam revealed the PMI to be normally situated and sized. The rhythm was regular and no extrasystoles were noted during several minutes of auscultation. The first and second heart sounds were normal and physiologic splitting of the second heart sound was noted. There were no murmurs, rubs, clicks, or gallops. PULMONARY: Lungs were clear to auscultation and percussion, and with normal diaphragmatic excursion. No wheezes or rales were noted. ABDOMEN: Soft, nontender, nondistended, normoactive bowel sounds. No palpable organomegaly. MUSCULOSKELETAL: No joint swelling or deformity. Examination of the extremities revealed easily palpable radial, femoral and pedal pulses. There was no cyanosis, clubbing or edema. NEUROLOGICAL: Unable to assess, yet the neurologic exam is nonfocal and the patient is currently sedated with propofol. SKIN: Examination of the skin revealed no evidence of significant rashes, suspicious appearing nevi or other concerning lesions. - Labs CBC & Chem 7: 07/27/18 03:40 07/27/18 03:40 Labs: Abnormal Lab Results - Last 24 Hours (Table) 07/26/18 07/26/18 07/27/18 Range/Units 17:24 23:39 03:11 Hgb (13.0-17.5) gm/dL MCHC (31.0-37.0) g/dL RDW (11.5-15.5) % Neutrophils # (1.3-7.7) k/uL Lymphocytes # (1.0-4.8) k/uL ABG pCO2 (35-45) mmHg ABG pO2 (83-108) mmHg ABG HCO3 (21-25) mmol/L ABG Total CO2 (19-24) mmol/L Carbon Dioxide (22-30) mmol/L BUN (9-20) mg/dL Glucose (74-99) mg/dL POC Glucose (mg/dL) 130 H 125 H 129 H (75-99) mg/dL Calcium (8.4-10.2) mg/dL 07/27/18 07/27/18 07/27/18 Range/Units 03:40 03:40 04:35 Hgb 12.6 L (13.0-17.5) gm/dL MCHC 30.4 L (31.0-37.0) g/dL RDW 15.6 H (11.5-15.5) % Neutrophils # 8.6 H (1.3-7.7) k/uL Lymphocytes # 0.6 L (1.0-4.8) k/uL ABG pCO2 58 H (35-45) mmHg ABG pO2 75 L (83-108) mmHg ABG HCO3 40 H* (21-25) mmol/L ABG Total CO2 42 H (19-24) mmol/L Carbon Dioxide 38 H (22-30) mmol/L BUN 40 H (9-20) mg/dL Glucose 148 H (74-99) mg/dL POC Glucose (mg/dL) (75-99) mg/dL Calcium 8.2 L (8.4-10.2) mg/dL 07/27/18 07/27/18 Range/Units 05:56 11:51 Hgb (13.0-17.5) gm/dL MCHC (31.0-37.0) g/dL RDW (11.5-15.5) % Neutrophils # (1.3-7.7) k/uL Lymphocytes # (1.0-4.8) k/uL ABG pCO2 (35-45) mmHg ABG pO2 (83-108) mmHg ABG HCO3 (21-25) mmol/L ABG Total CO2 (19-24) mmol/L Carbon Dioxide (22-30) mmol/L BUN (9-20) mg/dL Glucose (74-99) mg/dL POC Glucose (mg/dL) 125 H 120 H (75-99) mg/dL Calcium (8.4-10.2) mg/dL Microbiology - Last 24 Hours (Table) 07/23/18 04:12 Blood Culture - Preliminary Blood No Growth after 96 hours 06/12/19 17:39 Gram Stain - Preliminary Sputum Sputum Culture - Preliminary Assessment and Plan Plan: 1 acute respiratory failure, probably an acute on chronic hypercapnic respiratory failure. The patient was treated for an acute COPD exacerbation. He was given accommodation bronchodilators and steroids. Chest x-ray from yesterday and today showed development of lower lobe infiltrate and effusion. B ased on that the patient was started on diuretics. Nevertheless, after being given a sedation holiday, the patient's weaning parameters were extremely poor and the patient was barely generating a tidal volume 180 with a rapid shallow breathing index of above 200s. As such, there was no room for any further weaning. Same process was done again today and the patient demonstrated weak weaning parameters. In fact the patient is not following strict commands. At times I feel that he is able to blink his eyes or grab my fingers upon demand, yet for the most part he is unable to communicate in a normal fashion. The patient's weaning parameters are poor. His COPD seems to be quite advanced and he has chronic hypoxic/hypercapnic respiratory failure. He is furthermore quite debilitated and progressively getting worse over this past 6 months. He has developed small to moderate-sized bilateral pleural effusion for which she is on diuretics. He is oxygenating well for now. We have made plans to extubate the patient to a BiPAP and and even possibly transition to comfort care measures if he fails this intervention. The family is not interested in long-term vent support/mechanical ventilation/tracheostomy tube insertion. 2 CVA, history of 3 history of sick sinus syndrome and the patient is a pacemaker in place 4 paroxysmal atrial fibrillation patient's rhythm is sinus and he is on long- term anticoagulation with Eliquis 5 hypertension 6 BPH 7 dementia 8 progressive debility secondary to above-mentioned comorbidities and the patient has been a [facility] for the past 6 months at least Plan We will keep the tube feeds on hold. We'll keep the sedation and hold. Once the patient's family that he was extubated patient or BiPAP and will make the necessary vent changes on the BiPAP. If the patient failed BiPAP, he'll be switched to comfort care measures. I have a discussion with at least 6 of his kids and the and they were all agreeable to this plan. Continue the rest of the treatment. Continue diuretics for now. We'll continue to follow. Prog nosis poor. She has of a successful wean is wipedwith above-mentioned comorbidities. We'll continue to follow. There is a critically care evaluation that was done in 45 minutes. Time with Patient: Greater than 30
--- NOTE | 2018-07-27 15:22 | P.PN ---
Subjective 83-year-old male was admitted for COPD exacerbation acute hypercapnic respiratory failure and patient remains intubated and didn't undergo pain felt today this will be attempted tomorrow. 07/25/2018 Patient failed weaning trial today. Patient is also being treated for aspiration pneumonia with Zosyn. Patient overall prognosis is externally poor patient appears to have advanced dementia had a lengthy discussion with the family with 2 sons in the present at the bedside. Patient overall baseline quality and functionality is externally poor patient is mostly bedbound and wheelchair-bound. Because of this I had a discussion the family regarding comfort care and hospice. 07/26/2018 Patient failed extubation again today discussion regarding hospice was made with family again today. Patient started having high-grade fever patient is already on Zosyn may need to add vancomycin 07/27/2018 Patient is on BiPAP support now if he fails plan is to switch to comfort care. Internal Sales Engineer discussed with the family at length of sedation is on hold to avina are being held as well patient is on diuretic therapy as well. No more fever today. Unable to obtain due to patient's clinical condition All inpatient medications were reviewed and appropriate changes in these medications as dictated in the interval history and assessment and plan. Objective - Vital Signs Vital signs: Vital Signs Temp 97.5 F L 07/27/18 08:00 Pulse 62 07/27/18 12:20 Resp 20 07/27/18 10:00 BP 154/80 07/27/18 10:00 Pulse Ox 94 L 07/27/18 10:00 Intake & Output 07/26/18 07/27/18 07/27/18 18:59 06:59 18:59 Intake Total 7985.501 1611.505 442.284 Output Total 1171 201 3954 Balance 47.923 1248.505 -1482.716 Weight 117.1 kg 117.1 kg Intake: IV 766 892 16 .9 pressure bag 66 72 6 Piperacillin-Tazobactam 3 100 200 .375 gm In Sodium Chloride 0.9% 100 ml @ 25 mls/hr IVPB Q8H [facility] Rx#: [id number] Sodium Chloride 0.9% 1, 100 120 10 000 ml @ 10 mls/hr IV . Q24H [facility] Rx#:[id number] Vancomycin 2,000 mg In 500 500 Sodium Chloride 0.9% 500 ml 500 ml @ 167 mls/hr IVPB ONCE ONE Rx#: [id number] Intake, IV Titration 205.923 204.505 54.284 Amount Clevidipine Butyrate 25 43.301 mg In Empty Bag 1 bag @ 1 MG/HR 2 mls/hr IV .Q24H [facility] Rx#:[id number] Propofol 1,000 mg In 162.622 204.505 54.284 Empty Bag 1 bag @ Titrate IV .Q0M [facility] Rx#: [id number] Tube Feeding 741 912 312 Other 210 90 60 Output: Urine 4691 195 2228 Other: Voiding Method Indwelling Catheter Indwelling Catheter Indwelling Catheter ABP, PAP, CO, CI - Last Documented Arterial Blood Pressure 181/70 - Exam PHYSICAL EXAMINATION: GENERAL: Patient is intubated sedated HEENT: Pupils are round and equally reacting to light. EOMI. No scleral icterus. No conjunctival pallor. Normocephalic, atraumatic. No pharyngeal erythema. No thyromegaly. CARDIOVASCULAR: S1 and S2 present. No murmurs, rubs, or gallops. PULMONARY: Diffuse rhonchi ABDOMEN: Soft, nontender, nondistended, normoactive bowel sounds. No palpable organomegaly. MUSCULOSKELETAL: No joint swelling or deformity. EXTREMITIES: No cyanosis, clubbing, or pedal edema. NEUROLOGICAL: Unable to assess SKIN: No rashes. - Labs CBC & Chem 7: 07/27/18 03:40 07/27/18 03:40 Labs: Abnormal Lab Results - Last 24 Hours (Table) 07/26/18 07/26/18 07/27/18 Range/Units 17:24 23:39 03:11 Hgb (13.0-17.5) gm/dL MCHC (31.0-37.0) g/dL RDW (11.5-15.5) % Neutrophils # (1.3-7.7) k/uL Lymphocytes # (1.0-4.8) k/uL ABG pCO2 (35-45) mmHg ABG pO2 (83-108) mmHg ABG HCO3 (21-25) mmol/L ABG Total CO2 (19-24) mmol/L Carbon Dioxide (22-30) mmol/L BUN (9-20) mg/dL Glucose (74-99) mg/dL POC Glucose (mg/dL) 130 H 125 H 129 H (75-99) mg/dL Calcium (8.4-10.2) mg/dL 07/27/18 07/27/18 07/27/18 Range/Units 03:40 03:40 04:35 Hgb 12.6 L (13.0-17.5) gm/dL MCHC 30.4 L (31.0-37.0) g/dL RDW 15.6 H (11.5-15.5) % Neutrophils # 8.6 H (1.3-7.7) k/uL Lymphocytes # 0.6 L (1.0-4.8) k/uL ABG pCO2 58 H (35-45) mmHg ABG pO2 75 L (83-108) mmHg ABG HCO3 40 H* (21-25) mmol/L ABG Total CO2 42 H (19-24) mmol/L Carbon Dioxide 38 H (22-30) mmol/L BUN 40 H (9-20) mg/dL Glucose 148 H (74-99) mg/dL POC Glucose (mg/dL) (75-99) mg/dL Calcium 8.2 L (8.4-10.2) mg/dL 07/27/18 07/27/18 Range/Units 05:56 11:51 Hgb (13.0-17.5) gm/dL MCHC (31.0-37.0) g/dL RDW (11.5-15.5) % Neutrophils # (1.3-7.7) k/uL Lymphocytes # (1.0-4.8) k/uL ABG pCO2 (35-45) mmHg ABG pO2 (83-108) mmHg ABG HCO3 (21-25) mmol/L ABG Total CO2 (19-24) mmol/L Carbon Dioxide (22-30) mmol/L BUN (9-20) mg/dL Glucose (74-99) mg/dL POC Glucose (mg/dL) 125 H 120 H (75-99) mg/dL Calcium (8.4-10.2) mg/dL Microbiology - Last 24 Hours (Table) 07/23/18 04:12 Blood Culture - Preliminary Blood No Growth after 96 hours 07/26/18 17:39 Gram Stain - Preliminary Sputum Sputum Culture - Preliminary Assessment and Plan Plan: Acute on chronic hypercapnic respiratory failure secondary to COPD exacerbation for which patient will continue with inhalational treatments with ventilatory support and wean off as tolerated. Patient is on Zosyn for possible aspiration pneumonia, patient started having fevers vancomycin was added to cover gram- positive organisms including Staphylococcus. Failed weaning trial today, patient will undergo weaning trial again tomorrow -Cerebral vascular accident -Atrial fibrillation, sick sinus syndrome patient has a pacemaker patient is on Eliquis which will be continued -History of CVA in the past -Hypertension Abdomen benign prostatic hypertrophic -Dementia -Generalized deconditioning Patient will need GI prophylaxis pharmacologic patient's overall prognosis is extremely poor patient's baseline quality of life is poor
[2018-07-27] MEDS ORDERED: HALOPERIDOL LACTATE 5 MG/ML 1 ML VIAL IVP PRN ×4 (16:37→18:18)
[2018-07-27] MEDS: CLEVIDIPINE BUTYRATE 25 MG in EMPTY BAG 1 BAG IV SCH ×4 (16:40→23:09)
[2018-07-27] MEDS: SODIUM CHLORIDE 0.9% 1,000 ML IV SCH (16:58)
[2018-07-27 17:40] LABS: ABG Base Excess 12.8 mmol/L; ABG Oxygen Saturation 99.3 % (94-97); ABG PCO2 61 mmHg (35-45); ABG PH 7.43 (7.35-7.45); ABG PO2 255 mmHg (83-108); Allen Test Performed? Yes
[2018-07-27 17:54] LABS: ABG HCO3 40 mmol/L (21-25)
[2018-07-27] MEDS: ACETAMINOPHEN IV (For NPO) 1,000 MG in EMPTY BAG 1 BAG IVPB PRN (18:47)
[2018-07-27 18:52] LABS: Glucose,Whole Blood 107 mg/dL (75-99)
[2018-07-27 23:54] LABS: Glucose,Whole Blood 124 mg/dL (75-99)
[2018-07-28] MEDS: IPRATROPIUM-ALBUTEROL 3 ML NEB INHALATION SCH ×7 (01:16→23:45)
[2018-07-28] MEDS: CLEVIDIPINE BUTYRATE 25 MG in EMPTY BAG 1 BAG IV SCH ×2 (01:51→06:12)
[2018-07-28] MEDS: PIPERACILLIN-TAZOBACTAM 3.375 GM in SODIUM CHLORIDE 0.9% 100 ML IVPB SCH ×2 (03:08→12:36)
[2018-07-28] MEDS: VANCOMYCIN 1,750 MG in SODIUM CHLORIDE 0.9% 500 ML 500 ML IVPB SCH ×2 (04:10→17:57)
[2018-07-28 04:39] LABS: Basophils % (A) 0 %; Eosinophils # (A) 0.1 k/uL (0-0.7); Eosinophils % (A) 1 %; HCT 46.9 % (39.0-53.0); HGB 14.2 gm/dL (13.0-17.5); Hypochromasia Slight; Lymphocytes # (A) 0.5 k/uL (1.0-4.8); Lymphocytes % (A) 4 %; MCH 27.2 pg (25.0-35.0); MCHC 30.3 g/dL (31.0-37.0); MCV 89.8 fL (80.0-100.0); Mean Platelet Volume 7.4; Monocytes # (A) 0.5 k/uL (0-1.0); Monocytes % (A) 4 %; Neutrophils # (A) 11.1 k/uL (1.3-7.7); Neutrophils % (A) 90 %; Platelet Count 215 k/uL (150-450); RBC 5.23 m/uL (4.30-5.90); RDW 13.9 % (11.5-15.5); WBC 12.3 k/uL (3.8-10.6)
[2018-07-28 04:47] LABS: African American GFR (CKD) >90 (>60 ml/min/1.73 sqM); Anion Gap 5 mmol/L; Blood Urea Nitrogen 46 mg/dL (9-20); Calcium 8.5 mg/dL (8.4-10.2); Chloride 97 mmol/L (98-107); Glucose 151 mg/dL (74-99); Magnesium 2.1 mg/dL (1.6-2.3); Potassium 3.9 mmol/L (3.5-5.1); Sodium 142 mmol/L (137-145)
[2018-07-28 05:00] LABS: Carbon Dioxide 40 mmol/L (22-30)
[2018-07-28] MEDS: INSULIN ASPART (NovoLOG) 100 UNIT/ML VIAL SQ SCH ×3 (05:46→18:06)
[2018-07-28 05:54] LABS: Glucose,Whole Blood 125 mg/dL (75-99)
--- NOTE | 2018-07-28 07:05 | XR ---
EXAMINATION TYPE: XR chest 1V portable DATE OF EXAM: 07/28/2018 COMPARISON: 07/27/2018 HISTORY: Endotracheal tube placement, shortness of breath TECHNIQUE: Single frontal view of the chest is obtained. FINDINGS: The endotracheal tube and enteric tube have been removed in the interim. Left-sided centra l venous catheter is unchanged. 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 There remains moderate p ulmonary vascular congestion and interstitial edema with bibasilar airspace disease and trace pleural effusions although slightly improved in the interim. Again there is generalized osseous demineraliza tion. IMPRESSION: Interval removal of the endotracheal and enteric tubes. Very minimal improvement in the trace pleural effusions, bibasilar airspace disease, and moderate pulmonary vascular congestion.
[2018-07-28 07:40] LABS: ABG Base Excess 16.1 mmol/L; ABG Oxygen Saturation 99.5 % (94-97); ABG PCO2 65 mmHg (35-45); ABG PH 7.41 (7.35-7.45); ABG PO2 319 mmHg (83-108); ABG TCO2 43 mmol/L (19-24); Allen Test Performed? Yes
[2018-07-28 07:43] LABS: ABG HCO3 41 mmol/L (21-25)
[2018-07-28] MEDS: METOPROLOL TARTRATE 25 MG TAB PO SCH (08:18)
[2018-07-28] MEDS: APIXABAN 2.5 MG TABLET PO SCH (08:18)
[2018-07-28] MEDS: SENNOSIDES 8.6 MG TAB PO SCH (08:19)
[2018-07-28] MEDS: POLYETHYLENE GLYCOL 3350 17 GM POWD.PACK PO SCH (08:19)
[2018-07-28] MEDS: TAMSULOSIN 0.4 MG CAP.ER.24H PO SCH (08:19)
[2018-07-28] MEDS: methylPREDNISolone SOD SUCCI 40 MG/ML 1 ML VIAL IV SCH (08:36)
[2018-07-28] MEDS: PANTOPRAZOLE 40 MG/10 ML VIAL IV SCH (08:36)
[2018-07-28] MEDS: FUROSEMIDE 10 MG/ML 4 ML VIAL IV SCH (08:36)
[2018-07-28] MEDS: HEPARIN SODIUM,PORCINE 5,000 UNIT/ML 1 ML VIAL SQ SCH ×2 (08:36→17:56)
[2018-07-28] MEDS: SODIUM CHLORIDE 0.9% 1,000 ML IV SCH (08:37)
[2018-07-28 09:43] LABS: Allen Test Performed? Yes
[2018-07-28 09:44] LABS: ABG PCO2 85 mmHg (35-45); ABG PO2 148 mmHg (83-108)
[2018-07-28 09:45] LABS: ABG Base Excess 15.3 mmol/L; ABG HCO3 42 mmol/L (21-25); ABG TCO2 44 mmol/L (19-24)
[2018-07-28] MEDS ORDERED: ENALAPRILAT 1.25 MG/ML 1 ML VIAL IVP PRN (12:17)
[2018-07-28 12:28] LABS: Glucose,Whole Blood 132 mg/dL (75-99)
[2018-07-28 12:56] VITALS: TEMP 98.1
--- NOTE | 2018-07-28 13:34 | P.PN ---
Subjective Progress Note Date: 07/28/18 On 07/24/2018 the patient is being seen for a follow-up. Noted the patient is [facility] resident. The patient's condition has been gradually decompensating as reported by family members and his son. The patient came into the hospital because of worsening shortness of breath. Initially was taken to the hospital he was placed on a BiPAP. Following his arrival here to the emergency department, the patient was intubated and placed on a mechanical ventilator. The exact cause for the respiratory failure is not clear to me. Seems that the patient went into an acute hypercapnic respiratory failure. This morning, the patient is an assist-control mode of ventilation with a tidal volume of 500 with a rate of 22 and FiO2 of 40% and PEEP of 5. Chest x-ray shows some limited bibasilar pulmonary infiltrates. The airway pressure nonelevated. Blood gas showed a pH of 7.39 with a pCO2 of 48 and pO2 of 73. The patient is afebrile hemodynamically stable. No significant leukocytosis and the white cell count at 8.3. The renal function is within normal limits. Electrodes are also within normal limits. Hemoglobin is at 12.3. White cell count at 8.3. Patient is sedated with propofol and is calm and comfortable. IV Zosyn was added in consultation for aspiration pneumonia. Cultures still pending for now. The patient has history of atrial fibrillation for that reason is maintained on Eliquis. 2 feeds are also to be started. No other significant events otherwise over the past 24 hours. On 07/25/2018 the patient is sedated on propofol and calm and comfortable. He remains on a mechanical ventilator. He remains on a tidal volume of 500 with a rate of 22 and FiO2 of 40% with a PEEP of 5. Chest x-ray showing development of bilateral lower lobe infiltrates/effusion. I noted the patient has been in the significant fluid balance in order more than 8 L over the past 24 hours. I give him a dose of Lasix today. When the process of giving this patient a sedation holiday and willing to assess his mental status. Note that he has underlying dementia. In terms of his blood., The pH is 7.44 with a pCO2 52 and pO2 of 87 and this was on FiO2 of 40%. The patient is covered with IV Zosyn. The patient had negative cultures. Echo of the heart showed no significant abnormalities and the patient is a preserved LV function. The patient was also given enteral feeding for nutritional support. No fever. No chills. The axilla count is at 10.9. Renal function stable. On 07/26/2018 the patient was seen in follow-up and had a lengthy discussion with the patient's family. It is clear to me. The patient has been progressively getting worse and the patient has been having impairment in the cognitive functions over the years especially over the past several months. For the past few weeks the patient has been bedridden and the patient has not been able to ambulate. Subsequently became progressively more short of breath and he end up an acute hypoxic and hypercapnic respiratory failure. I want to wean this patient and extubated him to a BiPAP today. For that reason, I kept on the sedation earlier this morning. As the patient was coming off the sedation he became progressively more hypotensive. He got to the point where he did follow some simple commands however he was not doing it consistently and he was not following commands. Weaning parameters were checked and the parameters were extremely poor. The patient's rapid shallow breathing index was above 200 and he was barely taking tidal volumes 100 mL while being on a spontaneous breathing trial with a pressure support of 5 and a PEEP of 5. I was contemplating to extubate the patient or BiPAP. Nevertheless, after observing his very poor weaning parameters, I decided not to. I continue diuretics. The patient is in a negative fluid balance. Is producing excess amount of urine output. He did have a low-grade fever today however he is on Zosyn. Chest x-ray is showing lower lobe pulmonary infiltrates and effusions. White cell count is at 10.4 with a hemoglobin of 12.2. Function is stable with a creatinine of 0.8. Morning blood gases showed a pH of 7.45 with a pCO2 of 55 and a PaO2 of 70 while being on assist control mode of ventilation with a tidal volume of 450 with an FiO2 of 40% and PEEP of 5 and the rate of 22. I noted some elevation his peak airway pressure. I dropped his tidal volume to 400. After being given a sedation holiday, the patient was unable to demonstrate adequate weaning parameters and the patient was becoming more anxious and restless. At that point he was placed back on propofol at 25 g. Blood cultures negative. He remains on DuoNeb nebulized treatments around the clock. He is on IV Solu- Medrol. Side effects was also used to control his blood pressure and currently it is off. Note that he had an acute hypersensitivity reaction while being off sedation. He remains on IV Zosyn. All of the cultures of been negative for now. Echo shows a preserved LV function. Family is at the bedside. On 07/27/2018 I'm seeing this patient for a follow-up. I was not able to do any weaning trials yesterday as the patient had very poor weaning parameters. After take this patient off sedation, I switched him to a pressure support of 5 and a PEEP of 5. His tidal volumes were barely above 200. He was becoming more restless and agitated hypertensive and tachypneic. I told that this will be a complete failure and for that reason I did not extubate the patient. The same process was done today. After taking the patient off sedation, I was able to measure the weaning parameters that were very poor. The patient was unable to generate tidal volumes above 200. His respiratory rate was quite elevated in the 40s. Rapid shallow breathing index was also high. Based on this, I put the patient back on assist control mode of ventilation currently is on low-dose sedation with propofol negative at a dose of 50 g per KG per minute. His chest x-ray showed bilateral lower lobe infiltrate and pleural effusion. The patient was restarted back on Lasix and the patient is currently receiving 40 mg every 12 hours and the patient's urine output is excellent and he is a negative fluid balance for now. He was having low-grade fever and he is currently afebrile. He is on IV Zosyn. Vancomycin was also added to the regimen. In terms of his COPD, he is not having any signs of bronchospasm wheezing. He is on DuoNeb nebulized treatments around the clock. He is also on IV Solu-Medrol 40 mg 212 hours. He is getting tube feeds for now and is able to tolerated his feeds without any major difficulties. I the next discussion with the family. This is obvious to going to be a difficult wean as mentioned earlier. The patient advanced dementia. The patient was quite debilitated prior to this and he was bedridden. He is extremely weak and he's chances of a successful extubation is quite low. One option is to consider tracheostomy and long-term vent support and wean if possible. The other option is extubation to BiPAP and decided accordingly with the option of no reintubation and comfort care measures should he fail. I think the family is interested second option. Atelectatic discussion with them. There are was not interested in long-term mechanical ventilation vent support. They are aware that the patient's condition is poor and he would like to give him a chance with extubation to BiPAP and decided accordingly. For now the plan is to extubate this patient later stage once more family members are available to bedside. 07/28/2018 and seeing this patient for a follow-up. I was able to extubate this patient yesterday to a BiPAP. Throughout the night yesterday the patient was kept on a BiPAP at a pressure of 14/6 cm of water. This morning, while an FiO2 of 100%, blood gases was done and it showed a pH of 7.41 with a pCO2 of 65 and pO2 of 319. The patient seemed to be slightly more awake. He was following some simple commands. He continued to be quite lethargic. It was very hard to communicate with him as the patient does not hear well. However, upon repeated attempts, I was able to get some reaction from the family was able to move his upper extremities and his toes upon demand. He is quite weak. He has a very weak cough. He is unable to speak of. This is. No agitation. Seemed to be slightly tachypneic. I took him off the BiPAP. I put him on a oxygen by nasal cannula high flow. He tolerated it for almost an hour and subsequently repeat blood gases was done that showed development of an acute on top of chronic respiratory acidosis. The pH was down to 7.3 with a pCO2 of 85 and a pO2 was 148. He was getting more obtunded and tachypneic. Based on that, I put him back on his BiPAP and FiO2 is obviously be dropped to maintain a saturation above 90%. FiO2 can be dropped down to 50% at least for now. Chest x-ray showed interval improvement in the pleural effusion. There is some bibasilar airspace disease and moderate pulmonary vessel congestion. ET tube has been removed. Patient is afebrile. The patient is hypertensive. He is on cataplexy drip which is currently running at 1 mg an hour. The dose will be titrated to control his blood pressure more effectively. He remains on IV Zosyn and vancomycin. He remains on bronchodilators. He remains on systemic steroids. He remains on IV Lasix 40 mg every 12 hours. The neck fluid balance is -1.6 L over the past 24 hours and the patient is producing excellent urine output. Family is at the bedside. They understand the poor prognosis. We are going not to reintubate this patient should she develop any worsening in his pulmonary status. Comfort care will be instituted if his condition decompensates. Objective - Vital Signs Vital signs: Vital Signs Temp 98.1 F 07/28/18 12:00 Pulse 60 07/28/18 12:08 Resp 39 H 07/28/18 12:00 BP 198/92 07/28/18 12:00 Pulse Ox 95 07/28/18 12:00 Intake & Output 07/27/18 07/28/18 07/28/18 18:59 06:59 18:59 Intake Total 1112.900 950.234 61 Output Total 2300 1455 200 Balance -1187.100 -504.766 -139 Weight 117.1 kg 116.9 kg 116.9 kg Intake: IV 536 783 61 .9 pressure bag 6 33 21 Piperacillin-Tazobactam 3 100 .375 gm In Sodium Chloride 0.9% 100 ml @ 25 mls/hr IVPB Q8H [facility] Rx#: [id number] Sodium Chloride 0.9% 1, 30 150 40 000 ml @ 10 mls/hr IV . Q24H [facility] Rx#:[id number] Vancomycin 1,750 mg In 500 Sodium Chloride 0.9% 500 ml 500 ml @ 167 mls/hr IVPB Q12H [facility] Rx#: [id number] Vancomycin 2,000 mg In 500 Sodium Chloride 0.9% 500 ml 500 ml @ 167 mls/hr IVPB ONCE ONE Rx#: [id number] Intake, IV Titration 204.900 167.234 Amount Clevidipine Butyrate 25 0 mg In Empty Bag 1 bag @ 1 MG/HR 2 mls/hr IV .Q24H [facility] Rx#:[id number] Clevidipine Butyrate 25 4.9 167.234 mg In Empty Bag 1 bag @ 1 MG/HR 2 mls/hr IV .Q24H [facility] Rx#:[id number] Piperacillin-Tazobactam 3 100 .375 gm In Sodium Chloride 0.9% 100 ml @ 25 mls/hr IVPB Q8H [facility] Rx#: [id number] Propofol 1,000 mg In 100.000 Empty Bag 1 bag @ Titrate IV .Q0M [facility] Rx#: [id number] Oral 0 Tube Feeding 312 Other 60 Output: Urine 2300 1455 200 Other: Voiding Method Indwelling Catheter Indwelling Catheter Indwelling Catheter ABP, PAP, CO, CI - Last Documented Arterial Blood Pressure 69/67 - Exam GENERAL: Patient is currently on a BiPAP at a pressure of 14/6 cm of water. He is tolerating the BiPAP without any major difficulties. He has a good facial seal with a full facemask. No signs of any respiratory distress. He is not using excessive muscle breathing. He is quite lethargic. He occasionally follows some simple commands. At times he gets quite restless and agitated. Head exam was generally normal. There was no scleral icterus or corneal arcus. Mucous membranes were moist. HEENT: Pupils are round and equally reacting to light. EOMI. No scleral icterus. No conjunctival pallor. Normocephalic, atraumatic. No pharyngeal erythema. No thyromegaly. CARDIOVASCULAR: Cardiac exam revealed the PMI to be normally situated and sized. The rhythm was regular and no extrasystoles were noted during several minutes of auscultation. The first and second heart sounds were normal and physiologic splitting of the second heart sound was noted. There were no murmurs, rubs, clicks, or gallops. PULMONARY: Lungs were clear to auscultation and percussion, and with normal diaphragmatic excursion. No wheezes or rales were noted. ABDOMEN: Soft, nontender, nondistended, normoactive bowel sounds. No palpable organomegaly. MUSCULOSKELETAL: No joint swelling or deformity. Examination of the extremities revealed easily palpable radial, femoral and pedal pulses. There was no cyanosis, clubbing or edema. NEUROLOGICAL: The patient goes to painful similar she'll 4 extremities. An accurate motor function assessment cannot be done. He is able to squeeze my fingers upon demand and wiggle his toes. Pupils are equal and symmetric to light and there is no facial asymmetry at this point in time pain no seizure activity. SKIN: Examination of the skin revealed no evidence of significant rashes, suspicious appearing nevi or other concerning lesions. - Labs CBC & Chem 7: 07/28/18 04:22 07/28/18 04:22 Labs: Abnormal Lab Results - Last 24 Hours (Table) 07/27/18 07/27/18 07/27/18 Range/Units 17:30 18:40 23:42 WBC (3.8-10.6) k/uL MCHC (31.0-37.0) g/dL Neutrophils # (1.3-7.7) k/uL Lymphocytes # (1.0-4.8) k/uL ABG pH (7.35-7.45) ABG pCO2 61 H (35-45) mmHg ABG pO2 255 H (83-108) mmHg ABG HCO3 40 H* (21-25) mmol/L ABG Total CO2 (19-24) mmol/L ABG O2 Saturation 99.3 H (94-97) % Chloride (98-107) mmol/L Carbon Dioxide (22-30) mmol/L BUN (9-20) mg/dL Glucose (74-99) mg/dL POC Glucose (mg/dL) 107 H 124 H (75-99) mg/dL 07/28/18 07/28/18 07/28/18 Range/Units 04:22 04:22 05:42 WBC 12.3 H (3.8-10.6) k/uL MCHC 30.3 L (31.0-37.0) g/dL Neutrophils # 11.1 H (1.3-7.7) k/uL Lymphocytes # 0.5 L (1.0-4.8) k/uL ABG pH (7.35-7.45) ABG pCO2 (35-45) mmHg ABG pO2 (83-108) mmHg ABG HCO3 (21-25) mmol/L ABG Total CO2 (19-24) mmol/L ABG O2 Saturation (94-97) % Chloride 97 L (98-107) mmol/L Carbon Dioxide 40 H (22-30) mmol/L BUN 46 H (9-20) mg/dL Glucose 151 H (74-99) mg/dL POC Glucose (mg/dL) 125 H (75-99) mg/dL 07/28/18 07/28/18 07/28/18 Range/Units 07:35 09:31 12:16 WBC (3.8-10.6) k/uL MCHC (31.0-37.0) g/dL Neutrophils # (1.3-7.7) k/uL Lymphocytes # (1.0-4.8) k/uL ABG pH 7.30 L (7.35-7.45) ABG pCO2 65 H 85 H* (35-45) mmHg ABG pO2 319 H 148 H (83-108) mmHg ABG HCO3 41 H* 42 H* (21-25) mmol/L ABG Total CO2 43 H 44 H (19-24) mmol/L ABG O2 Saturation 99.5 H 98.0 H (94-97) % Chloride (98-107) mmol/L Carbon Dioxide (22-30) mmol/L BUN (9-20) mg/dL Glucose (74-99) mg/dL POC Glucose (mg/dL) 132 H (75-99) mg/dL Microbiology - Last 24 Hours (Table) 07/26/18 17:39 Gram Stain - Preliminary Sputum Sputum Culture - Preliminary Presumptive Staph aureus 07/23/18 04:12 Blood Culture - Preliminary Blood No Growth after 120 hours Assessment and Plan Plan: 1 acute respiratory failure, probably an acute on chronic hypercapnic respiratory failure. Patient has advanced COPD and he failed because of an acute COPD exacerbation. At the same time has significant impairment in his cognitive functions due to his underlying dementia. He was progressively getting worse and he came in with acute respiratory failure. For now, the patient is unable to tolerate being off the BiPAP. He was extubated to BiPAP yesterday. I tried him on a nasal cannula today and he developed an acute on chronic hypercapnic respiratory failure and had to be placed back on the BiPAP. We'll continue bronchodilators. Continue antibiotics. Continue steroids. Continue diuretics. Repeat attempt with the next 24 hours. He is a do not to reintubate CODE STATUS based on my discussion with the family. 2 CVA, history of 3 history of sick sinus syndrome and the patient is a pacemaker in place 4 paroxysmal atrial fibrillation patient's rhythm is sinus and he is on long- term anticoagulation with Eliquis 5 hypertension, currently on clevidipine drip for blood pressure control. 6 BPH 7 dementia 8 progressive debility secondary to above-mentioned comorbidities and the patient has been a [facility] resident for the past 6 months at least Plan Doses remains quite poor. I personally do not think that the patient is going to recover from his respiratory failure. He has significant neuromuscular weakness and cognitive impairment to the point where the patient is unable to cough or maintain a clear airway. For now is tolerating the BiPAP. While on a nasal cannula he developed an acute on chronic respiratory acidosis. He was switched back on the BiPAP. Would avoid sedation. Haldol only if needed for agitation. The attempt to wean him to a nasal cannula will be done again tomorrow. Keep him nothing by mouth for now. Continue bronchodilators. Continue steroids. Continue diuretics. Continue antibiotics. Titrate the clevidipine drip for blood pressure control. We'll continue to follow. I did ask discussion again with the family. Expansion of the situation. He is a DO NOT INTUBATE CODE STATUS. The sedation was on a more than 30 minutes. Time with Patient: Greater than 30
--- NOTE | 2018-07-28 14:14 | P.PN ---
Subjective 83-year-old male was admitted for COPD exacerbation acute hypercapnic respiratory failure and patient remains intubated and didn't undergo pain felt today this will be attempted tomorrow. 07/25/2018 Patient failed weaning trial today. Patient is also being treated for aspiration pneumonia with Zosyn. Patient overall prognosis is externally poor patient appears to have advanced dementia had a lengthy discussion with the family with 2 sons in the present at the bedside. Patient overall baseline quality and functionality is externally poor patient is mostly bedbound and wheelchair-bound. Because of this I had a discussion the family regarding comfort care and hospice. 07/26/2018 Patient failed extubation again today discussion regarding hospice was made with family again today. Patient started having high-grade fever patient is already on Zosyn may need to add vancomycin 07/27/2018 Patient is on BiPAP support now if he fails plan is to switch to comfort care. [employer] discussed with the family at length of sedation is on hold to avina are being held as well patient is on diuretic therapy as well. No more fever today. 07/28/2018 Patient is extubated on BiPAP. Patient family is trying to get information from the patient regarding his wishes regarding his overall goals of care, hospice and comfort care Unable to obtain due to patient's clinical condition All inpatient medications were reviewed and appropriate changes in these medications as dictated in the interval history and assessment and plan. Objective - Vital Signs Vital signs: Vital Signs Temp 98.1 F 07/28/18 12:00 Pulse 60 07/28/18 12:08 Resp 39 H 07/28/18 12:00 BP 198/92 07/28/18 12:00 Pulse Ox 95 07/28/18 12:00 Intake & Output 07/27/18 07/28/18 07/28/18 18:59 06:59 18:59 Intake Total 1112.900 950.234 61 Output Total 2300 1455 200 Balance -1187.100 -504.766 -139 Weight 117.1 kg 116.9 kg 116.9 kg Intake: IV 536 783 61 .9 pressure bag 6 33 21 Piperacillin-Tazobactam 3 100 .375 gm In Sodium Chloride 0.9% 100 ml @ 25 mls/hr IVPB Q8H [facility] Rx#: [id number] Sodium Chloride 0.9% 1, 30 150 40 000 ml @ 10 mls/hr IV . Q24H [facility] Rx#:[id number] Vancomycin 1,750 mg In 500 Sodium Chloride 0.9% 500 ml 500 ml @ 167 mls/hr IVPB Q12H [facility] Rx#: [id number] Vancomycin 2,000 mg In 500 Sodium Chloride 0.9% 500 ml 500 ml @ 167 mls/hr IVPB ONCE ONE Rx#: [id number] Intake, IV Titration 204.900 167.234 Amount Clevidipine Butyrate 25 0 mg In Empty Bag 1 bag @ 1 MG/HR 2 mls/hr IV .Q24H [facility] Rx#:[id number] Clevidipine Butyrate 25 4.9 167.234 mg In Empty Bag 1 bag @ 1 MG/HR 2 mls/hr IV .Q24H [facility] Rx#:[id number] Piperacillin-Tazobactam 3 100 .375 gm In Sodium Chloride 0.9% 100 ml @ 25 mls/hr IVPB Q8H [facility] Rx#: [id number] Propofol 1,000 mg In 100.000 Empty Bag 1 bag @ Titrate IV .Q0M [facility] Rx#: [id number] Oral 0 Tube Feeding 312 Other 60 Output: Urine 2300 1455 200 Other: Voiding Method Indwelling Catheter Indwelling Catheter Indwelling Catheter ABP, PAP, CO, CI - Last Documented Arterial Blood Pressure 69/67 - Exam PHYSICAL EXAMINATION: GENERAL: Patient is extubated awake and able to get any kind of history from the patient has patient is on BiPAP HEENT: Pupils are round and equally reacting to light. EOMI. No scleral icterus. No conjunctival pallor. Normocephalic, atraumatic. No pharyngeal erythema. No thyromegaly. CARDIOVASCULAR: S1 and S2 present. No murmurs, rubs, or gallops. PULMONARY: Diffuse rhonchi, improved compared to admission ABDOMEN: Soft, nontender, nondistended, normoactive bowel sounds. No palpable organomegaly. MUSCULOSKELETAL: No joint swelling or deformity. EXTREMITIES: No cyanosis, clubbing, or pedal edema. NEUROLOGICAL: Unable to assess SKIN: No rashes. - Labs CBC & Chem 7: 07/28/18 04:22 07/28/18 04:22 Labs: Abnormal Lab Results - Last 24 Hours (Table) 07/27/18 07/27/18 07/27/18 Range/Units 17:30 18:40 23:42 WBC (3.8-10.6) k/uL MCHC (31.0-37.0) g/dL Neutrophils # (1.3-7.7) k/uL Lymphocytes # (1.0-4.8) k/uL ABG pH (7.35-7.45) ABG pCO2 61 H (35-45) mmHg ABG pO2 255 H (83-108) mmHg ABG HCO3 40 H* (21-25) mmol/L ABG Total CO2 (19-24) mmol/L ABG O2 Saturation 99.3 H (94-97) % Chloride (98-107) mmol/L Carbon Dioxide (22-30) mmol/L BUN (9-20) mg/dL Glucose (74-99) mg/dL POC Glucose (mg/dL) 107 H 124 H (75-99) mg/dL 07/28/18 07/28/18 07/28/18 Range/Units 04:22 04:22 05:42 WBC 12.3 H (3.8-10.6) k/uL MCHC 30.3 L (31.0-37.0) g/dL Neutrophils # 11.1 H (1.3-7.7) k/uL Lymphocytes # 0.5 L (1.0-4.8) k/uL ABG pH (7.35-7.45) ABG pCO2 (35-45) mmHg ABG pO2 (83-108) mmHg ABG HCO3 (21-25) mmol/L ABG Total CO2 (19-24) mmol/L ABG O2 Saturation (94-97) % Chloride 97 L (98-107) mmol/L Carbon Dioxide 40 H (22-30) mmol/L BUN 46 H (9-20) mg/dL Glucose 151 H (74-99) mg/dL POC Glucose (mg/dL) 125 H (75-99) mg/dL 07/28/18 07/28/18 07/28/18 Range/Units 07:35 09:31 12:16 WBC (3.8-10.6) k/uL MCHC (31.0-37.0) g/dL Neutrophils # (1.3-7.7) k/uL Lymphocytes # (1.0-4.8) k/uL ABG pH 7.30 L (7.35-7.45) ABG pCO2 65 H 85 H* (35-45) mmHg ABG pO2 319 H 148 H (83-108) mmHg ABG HCO3 41 H* 42 H* (21-25) mmol/L ABG Total CO2 43 H 44 H (19-24) mmol/L ABG O2 Saturation 99.5 H 98.0 H (94-97) % Chloride (98-107) mmol/L Carbon Dioxide (22-30) mmol/L BUN (9-20) mg/dL Glucose (74-99) mg/dL POC Glucose (mg/dL) 132 H (75-99) mg/dL Microbiology - Last 24 Hours (Table) 07/26/18 17:39 Gram Stain - Preliminary Sputum Sputum Culture - Preliminary Presumptive Staph aureus 07/23/18 04:12 Blood Culture - Preliminary Blood No Growth after 120 hours Assessment and Plan Plan: Acute on chronic hypercapnic respiratory failure secondary to COPD exacerbation for which patient will continue with inhalational treatments . Patient is on Zosyn for possible aspiration pneumonia, is an I vancomycin as well as no more fevers. Patient was extubated yesterday. Patient is presently on BiPAP. Overall prognosis excellent report family is trying to decide on his overall goals of care that is a comfort care versus continuation of treatment -Cerebral vascular accident -Atrial fibrillation, sick sinus syndrome patient has a pacemaker patient is on Eliquis which will be continued -History of CVA in the past -Hypertension Abdomen benign prostatic hypertrophic -Dementia -Generalized deconditioning Patient will need GI prophylaxis pharmacologic patient's overall prognosis is extremely poor patient's baseline quality of life is poor
[2018-07-28] MEDS ORDERED: MORPHINE SULFATE 4 MG/ML SYRINGE IV PRN (16:51)
[2018-07-28] MEDS ORDERED: ATROPINE OPHTH SOLN 1% 5ML BTL SUBLINGUAL PRN (16:51)
[2018-07-28] MEDS ORDERED: MORPHINE SULFATE 4 MG/ML SYRINGE IVP ONE (16:51)
[2018-07-28] MEDS ORDERED: DRY MOUTH SPRAY 44.3 SPRAY/44.3 ML SPRAY MUCOUS MEM PRN (16:51)
[2018-07-28] MEDS ORDERED: MORPHINE SULFATE 2 MG/ML SYRINGE IV PRN (16:51)
[2018-07-28] MEDS ORDERED: ARTIFICIAL TEARS-HYPROMELLOSE DROPS 15 ML BTL BOTH EYES PRN (16:51)
[2018-07-28] MEDS ORDERED: ONDANSETRON 4 MG/2 ML VIAL IVP PRN (16:51)
[2018-07-28] MEDS ORDERED: SCOPOLAMINE 1.5MG/72HR PATCH TRANSDERM SCH (17:00)
[2018-07-28] MEDS: MORPHINE SULFATE (100 MG/2 ML) 100 MG in SODIUM CHLORIDE 0.9% 100 ML IV SCH (18:04)
[2018-07-28 19:44] VITALS: PULSE 85
[2018-07-28 21:45] VITALS: BP 137/77
[2018-07-29] MEDS ORDERED: VANCOMYCIN TROUGH DUE 1 EACH MISC MISCELLANE ONE (03:00)
[2018-07-29] MEDS: IPRATROPIUM-ALBUTEROL 3 ML NEB INHALATION SCH (03:05)
[2018-07-29] MEDS: MORPHINE SULFATE (100 MG/2 ML) 100 MG in SODIUM CHLORIDE 0.9% 100 ML IV SCH ×2 (06:23→17:34)
--- NOTE | 2018-07-29 13:26 | P.PN ---
Subjective Progress Note Date: 07/29/18 Principal diagnosis: Acute respiratory failure, probable acute on chronic hypercapnic respiratory failure. On 07/24/2018 the patient is being seen for a follow-up. Noted the patient is long term resident. The patient's condition has been gradually decompensating as reported by family members and his son. The patient came into the hospital because of worsening shortness of breath. Initially was taken to the hospital he was placed on a BiPAP. Following his arrival here to the emergency department, the patient was intubated and placed on a mechanical ventilator. The exact cause for the respiratory failure is not clear to me. Seems that the patient went into an acute hypercapnic respiratory failure. This morning, the patient is an assist-control mode of ventilation with a tidal volume of 500 with a rate of 22 and FiO2 of 40% and PEEP of 5. Chest x-ray shows some limited bibasilar pulmonary infiltrates. The airway pressure nonelevated. Blood gas showed a pH of 7.39 with a pCO2 of 48 and pO2 of 73. The patient is afebrile hemodynamically stable. No significant leukocytosis and the white cell count at 8.3. The renal function is within normal limits. Electrodes are also within normal limits. Hemoglobin is at 12.3. White cell count at 8.3. Patient is sedated with propofol and is calm and comfortable. IV Zosyn was added in consultation for aspiration pneumonia. Cultures still pending for now. The patient has history of atrial fibrillation for that reason is maintained on Eliquis. 2 feeds are also to be started. No other significant events otherwise over the past 24 hours. On 07/25/2018 the patient is sedated on propofol and calm and comfortable. He remains on a mechanical ventilator. He remains on a tidal volume of 500 with a rate of 22 and FiO2 of 40% with a PEEP of 5. Chest x-ray showing development of bilateral lower lobe infiltrates/effusion. I noted the patient has been in the significant fluid balance in order more than 8 L over the past 24 hours. I give him a dose of Lasix today. When the process of giving this patient a sedation holiday and willing to assess his mental status. Note that he has underlying dementia. In terms of his blood., The pH is 7.44 with a pCO2 52 and pO2 of 87 and this was on FiO2 of 40%. The patient is covered with IV Zosyn. The patient had negative cultures. Echo of the heart showed no significant abnormalities and the patient is a preserved LV function. The patient was also given enteral feeding for nutritional support. No fever. No chills. The axilla count is at 10.9. Renal function stable. On 07/26/2018 the patient was seen in follow-up and had a lengthy discussion with the patient's family. It is clear to me. The patient has been progressively getting worse and the patient has been having impairment in the cognitive functions over the years especially over the past several months. For the past few weeks the patient has been bedridden and the patient has not been able to ambulate. Subsequently became progressively more short of breath and he end up an acute hypoxic and hypercapnic respiratory failure. I want to wean this patient and extubated him to a BiPAP today. For that reason, I kept on the sedation earlier this morning. As the patient was coming off the sedation he became progressively more hypotensive. He got to the point where he did follow some simple commands however he was not doing it consistently and he was not following commands. Weaning parameters were checked and the parameters were extremely poor. The patient's rapid shallow breathing index was above 200 and he was barely taking tidal volumes 100 mL while being on a spontaneous breathing trial with a pressure support of 5 and a PEEP of 5. I was contemplating to extu nanda the patient or BiPAP. Nevertheless, after observing his very poor weaning parameters, I decided not to. I continue diuretics. The patient is in a negative fluid balance. Is producing excess amount of urine output. He did have a low-grade fever today however he is on Zosyn. Chest x-ray is showing lower lobe pulmonary infiltrates and effusions. White cell count is at 10.4 with a hemoglobin of 12.2. Function is stable with a creatinine of 0.8. Morning blood gases showed a pH of 7.45 with a pCO2 of 55 and a PaO2 of 70 while being on assist control mode of ventilation with a tidal volume of 450 with an FiO2 of 40% and PEEP of 5 and the rate of 22. I noted some elevation his peak airway pressure. I dropped his tidal volume to 400. After being given a sedation holiday, the patient was unable to demonstrate adequate weaning parameters and the patient was becoming more anxious and restless. At that point he was placed back on propofol at 25 g. Blood cultures negative. He re jorge luis on DuoNeb nebulized treatments around the clock. He is on IV Solu-Medrol. Side effects was also used to control his blood pressure and currently it is off. Note that he had an acute hypersensitivity reaction while being off sedation. He remains on IV Zosyn. All of the cultures of been negative for now. Echo shows a preserved LV function. Family is at the bedside. On 07/27/2018 I'm seeing this patient for a follow-up. I was not able to do any weaning trials yesterday as the patient had very poor weaning parameters. After take this patient off sedation, I switched him to a pressure support of 5 and a PEEP of 5. His tidal volumes were barely above 200. He was becoming more restless and agitated hypertensive and tachypneic. I told that this will be a complete failure and for that reason I did not extubate the patient. The same process was done today. After taking the patient off sedation, I was able to measure the weaning parameters that were very poor. The patient was unable to generate tidal volumes above 200. His respiratory rate was quite elevated in the 40s. Rapid shallow breathing index was also high. Based on this, I put the patient back on assist control mode of ventilation currently is on low-dose sedation with propofol negative at a dose of 50 g per KG per minute. His chest x-ray showed bilateral lower lobe infiltrate and pleural effusion. The patient was restarted back on Lasix and the patient is currently receiving 40 mg every 12 hours and the patient's urine output is excellent and he is a negative fluid balance for now. He was having low-grade fever and he is currently afebrile. He is on IV Zosyn. Vancomycin was also added to the regimen. In terms of his COPD, he is not having any signs of bronchospasm wheezing. He is on DuoNeb nebulized treatments around the clock. He is also on IV Solu-Medrol 40 mg 212 hours. He is getting tube feeds for now and is able to tolerated his feeds without any major difficulties. I the next discussion with the family. This is obvious to going to be a difficult wean as mentioned earlier. The patient advanced dementia. The patient was quite debilitated prior to this and he was bedridden. He is extremely weak and he's chances of a successful extubation is quite low. One option is to consider tracheostomy and long-term vent support and wean if possible. The other option is extubation to BiPAP and decided accordingly with the option of no reintubation and comfort care measures should he fail. I think the family is interested second option. Atelectatic discussion with them. There are was not interested in long-term mechanical ventilation vent support. They are aware that the patient's condition is poor and he would like to give him a chance with extubation to BiPAP and decided accordingly. For now the plan is to extubate this patient later stage once more family members are available to bedside. 07/28/2018 and seeing this patient for a follow-up. I was able to extubate this patient yesterday to a BiPAP. Throughout the night yesterday the patient was kept on a BiPAP at a pressure of 14/6 cm of water. This morning, while an FiO2 of 100%, blood gases was done and it showed a pH of 7.41 with a pCO2 of 65 and pO2 of 319. The patient seemed to be slightly more awake. He was following some simple commands. He continued to be quite lethargic. It was very hard to communicate with him as the patient does not hear well. However, upon repeated attempts, I was able to get some reaction from the family was able to move his upper extremities and his toes upon demand. He is quite weak. He has a very weak cough. He is unable to speak of. This is. No agitation. Seemed to be slightly tachypneic. I took him off the BiPAP. I put him on a oxygen by nasal cannula high flow. He tolerated it for almost an hour and subsequently repeat blood gases was done that showed development of an acute on top of chronic respiratory acidosis. The pH was down to 7.3 with a pCO2 of 85 and a pO2 was 148. He was getting more obtunded and tachypneic. Based on that, I put him back on his BiPAP and FiO2 is obviously be dropped to maintain a saturation above 90%. FiO2 can be dropped down to 50% at least for now. Chest x-ray showed interval improvement in the pleural effusion. There is some bibasilar airspace disease and moderate pulmonary vessel congestion. ET tube has been removed. Patient is afebrile. The patient is hypertensive. He is on cataplexy drip which is currently running at 1 mg an hour. The dose will be titrated to control his blood pressure more effectively. He remains on IV Zosyn and vancomycin. He remains on bronchodilators. He remains on systemic steroids. He remains on IV Lasix 40 mg every 12 hours. The neck fluid balance is -1.6 L over the past 24 hours and the patient is producing excellent urine output. Family is at the bedside. They understand the poor prognosis. We are going not to reintubate this patient should she develop any worsening in his pulmonary status. Comfort care will be instituted if his condition decompensates. Patient is seen today 07/29/2018 in follow-up in the intensive care unit. The patient's and children decided to go with comfort care approximately 4:30 PM last evening. He is resting comfortably in no acute distress. On a morphine drip at 8 mg per hour. Scopolamine patch in place. He is continued on 8 L high flow nasal cannula. Respiratory rate of 10. Objective - Vital Signs Vital signs: Vital Signs Temp 98.1 F 07/28/18 12:00 Pulse 85 07/29/18 12:01 Resp 8 L 07/29/18 12:01 BP 137/77 07/29/18 08:00 Pulse Ox 93 L 07/28/18 16:00 Intake & Output 07/28/18 07/29/18 07/29/18 18:59 06:59 18:59 Intake Total 142.632 94.928 Output Total 420 Balance -277.368 94.928 Weight 116.9 kg Intake: IV 141 .9 pressure bag 51 Sodium Chloride 0.9% 1, 90 000 ml @ 10 mls/hr IV . Q24H [facility] Rx#:[id number] Intake, IV Titration 1.632 94.928 Amount Morphine Sulfate (100 mg/ 1.632 94.928 2 ml) 100 mg In Sodium Chloride 0.9% 100 ml @ 1 MG/HR 1.02 mls/hr IV . Q24H [facility] Rx#:[id number] Oral 0 Output: Urine 420 Other: Voiding Method Indwelling Catheter ABP, PAP, CO, CI - Last Documented Arterial Blood Pressure 171/59 - Exam GENERAL: Resting peacefully. Morphine drip at 8 mg per hour. Oxygen at 8 L high flow nasal cannula. Head exam was generally normal. There was no scleral icterus or corneal arcus. Mucous membranes were moist. HEENT: Pupils are round and equally reacting to light. EOMI. No scleral icterus. No conjunctival pallor. Normocephalic, atraumatic. No pharyngeal erythema. No thyromegaly. CARDIOVASCULAR: Cardiac exam revealed the PMI to be normally situated and sized. The rhythm was regular and no extrasystoles were noted during several minutes of auscultation. The first and second heart sounds were normal and physiologic s plitting of the second heart sound was noted. There were no murmurs, rubs, clicks, or gallops. PULMONARY: Lungs were clear to auscultation and percussion, and with normal diaphragmatic excursion. No wheezes or rales were noted. ABDOMEN: Soft, nontender, nondistended, normoactive bowel sounds. No palpable organomegaly. MUSCULOSKELETAL: No joint swelling or deformity. Examination of the extremities revealed easily palpable radial, femoral and pedal pulses. There was no cyanosis, clubbing or edema. NEUROLOGICAL: The patient goes to painful similar she'll 4 extremities. An accurate motor function assessment cannot be done. He is able to squeeze my fingers upon demand and wiggle his toes. Pupils are equal and symmetric to light and there is no facial asymmetry at this point in time pain no seizure activity. SKIN: Examination of the skin revealed no evidence of significant rashes, suspicious appearing nevi or other concerning lesions. - Labs CBC & Chem 7: 07/28/18 04:22 07/28/18 04:22 Labs: Microbiology - Last 24 Hours (Table) 07/26/18 17:39 Gram Stain - Final Sputum Sputum Culture - Final Methicillin resist S. aureus 07/23/18 04:12 Blood Culture - Final Blood No Growth after 144 hours Assessment and Plan Assessment: Impression: 1 acute respiratory failure, probably an acute on chronic hypercapnic respiratory failure. Patient has advanced COPD and he failed because of an acute COPD exacerbation. At the same time has significant impairment in his cognitive functions due to his underlying dementia. He was progressively getting worse and he came in with acute respiratory failure. The patient has been placed in comfort care. Currently on 8 L high flow nasal cannula. Morphine drip at 8 mg per hour. 2 CVA, history of 3 history of sick sinus syndrome and the patient is a pacemaker in place 4 paroxysmal atrial fibrillation patient's rhythm is sinus and he is on long- term anticoagulation with Eliquis 5 hypertension, currently on clevidipine drip for blood pressure control. 6 BPH 7 dementia 8 progressive debility secondary to above-mentioned comorbidities and the patient has been a long term resident for the past 6 months at least Plan: The patient was seen and evaluated by Dr. Lake. He had another discussion with the patient's and family. The patient is in comfort care now. Currently on morphine at 8 mg per hour. 8 L high flow nasal cannula. Appears in no distress. I, the cosigning physician, performed a history & physical examination of the patient. Lungs sounds are clear. Maintaining good O2 saturations in the 90s on 8 L high flow nasal cannula. I discussed the assessment and plan of care with my nurse practitioner, Isela Fleming. I attest to the above note as dictated by jaswinder wheatley
[2018-07-29 14:52] VITALS: RESP 10
--- NOTE | 2018-07-29 15:44 | P.PN ---
Subjective 83-year-old male was admitted for COPD exacerbation acute hypercapnic respiratory failure and patient remains intubated and didn't undergo pain felt today this will be attempted tomorrow. 07/25/2018 Patient failed weaning trial today. Patient is also being treated for aspiration pneumonia with Zosyn. Patient overall prognosis is externally poor patient appears to have advanced dementia had a lengthy discussion with the family with 2 sons in the present at the bedside. Patient overall baseline quality and functionality is externally poor patient is mostly bedbound and wheelchair-bound. Because of this I had a discussion the family regarding comfort care and hospice. 07/26/2018 Patient failed extubation again today discussion regarding hospice was made with family again today. Patient started having high-grade fever patient is already on Zosyn may need to add vancomycin 07/27/2018 Patient is on BiPAP support now if he fails plan is to switch to comfort care. Manager [employer] discussed with the family at length of sedation is on hold to avina are being held as well patient is on diuretic therapy as well. No more fever today. 07/28/2018 Patient is extubated on BiPAP. Patient family is trying to get information from the patient regarding his wishes regarding his overall goals of care, hospice and comfort care 07/29/2018 Patient the discomfort care at this time hospice was consulted patient is on IV morphine drip at 8 mg per hour does have shallow breathing doesn't appear to be in respiratory discomfort and or in pain. Unable to obtain due to patient's clinical condition All inpatient medications were reviewed and appropriate changes in these medications as dictated in the interval history and assessment and plan. Objective - Vital Signs Vital signs: Vital Signs Temp 98.1 F 07/28/18 12:00 Pulse 85 07/29/18 14:00 Resp 10 L 07/29/18 14:00 BP 137/77 07/29/18 08:00 Pulse Ox 93 L 07/28/18 16:00 Intake & Output 07/28/18 07/29/18 07/29/18 18:59 06:59 18:59 Intake Total 142.632 94.928 Output Total 420 Balance -277.368 94.928 Weight 116.9 kg Intake: IV 141 .9 pressure bag 51 Sodium Chloride 0.9% 1, 90 000 ml @ 10 mls/hr IV . Q24H [facility] Rx#:[id number] Intake, IV Titration 1.632 94.928 Amount Morphine Sulfate (100 mg/ 1.632 94.928 2 ml) 100 mg In Sodium Chloride 0.9% 100 ml @ 1 MG/HR 1.02 mls/hr IV . Q24H [facility] Rx#:[id number] Oral 0 Output: Urine 420 Other: Voiding Method Indwelling Catheter ABP, PAP, CO, CI - Last Documented Arterial Blood Pressure 176/54 - Exam PHYSICAL EXAMINATION: GENERAL: on morphine drip not in pain HEENT: Pupils are constricted because of morphine CARDIOVASCULAR: S1 and S2 present. PULMONARY: Diffuse rhonchi, improved compared to admission EXTREMITIES: No cyanosis, clubbing, or pedal edema. NEUROLOGICAL: Unable to assess SKIN: No rashes. - Labs CBC & Chem 7: 07/28/18 04:22 07/28/18 04:22 Labs: Microbiology - Last 24 Hours (Table) 07/26/18 17:39 Gram Stain - Final Sputum Sputum Culture - Final Methicillin resist S. aureus 07/23/18 04:12 Blood Culture - Final Blood No Growth after 144 hours Assessment and Plan Plan: Acute on chronic hypercapnic respiratory failure secondary to COPD exacerbation -Cerebral vascular accident -Atrial fibrillation, sick sinus syndrome patient has a pacemaker patient is on Eliquis which will be continued -History of CVA in the past -Hypertension Abdomen benign prostatic hypertrophic -Dementia Patient is presently comfort care and hospice continue with morphine drip, family present at bedside
[2018-07-29] MEDS: PIPERACILLIN-TAZOBACTAM 3.375 GM in SODIUM CHLORIDE 0.9% 100 ML IVPB SCH ×2 (19:05→19:07)
[2018-07-29] MEDS: APIXABAN 2.5 MG TABLET PO SCH (19:06)
[2018-07-29] MEDS: METOPROLOL TARTRATE 25 MG TAB PO SCH (19:06)
[2018-07-29] MEDS: FUROSEMIDE 10 MG/ML 4 ML VIAL IV SCH (19:06)
[2018-07-29] MEDS: methylPREDNISolone SOD SUCCI 40 MG/ML 1 ML VIAL IV SCH (19:06)
[2018-07-29] MEDS: INSULIN ASPART (NovoLOG) 100 UNIT/ML VIAL SQ SCH ×2 (19:07→19:08)
[2018-07-29] MEDS: HEPARIN SODIUM,PORCINE 5,000 UNIT/ML 1 ML VIAL SQ SCH (19:07)
[2018-07-29] MEDS: VANCOMYCIN 1,750 MG in SODIUM CHLORIDE 0.9% 500 ML 500 ML IVPB SCH (19:07)
[2018-07-29] MEDS: SODIUM CHLORIDE 0.9% 1,000 ML IV SCH (19:08)
--- NOTE | 2018-08-01 15:44 | CDI ---
Documentation Clarification Form Date: 08/01/2018 From: Lindsay FIELDS,RN,CCDS Email: [email or web address] Admit Date: 07/23/2018 5:38:00 AM Patient Name: Santosh Coyle Visit Number: [id number] Discharge Date: 07/29/2018 10:35:00 PM ATTENTION: The Clinical Documentation Specialists (CDI) and [facility] Coding Staff appreciate your assistance in clarifying documentation. Please respond to the clarification below the line at the bottom and electronically sign. The CDI & [facility] Coding staff will review the response and follow-up if needed. Please note: Queries are made part of the Legal Health Record. If you have any questions, please contact the author of this message via ITS. Dr. Zeke Gasca Please clarify the documentation of CVA Multiple PN state acute on chronic hypercapnic respiratory failure secondary to COPD exacerbation -cerebral vascular accident -atrial fibrillation, sick sinus syndromepatient has a pacemaker patient is on eliquis which will be continued -history of cva in the past -hypertension History/Risk Factors: COPD, Hx of HTN, CAD, Dementia, Prostate CA, CVA and Afib on anticoagulation, AICD Clinical Indicators: pt presenting with AMS and acute respiratory failure, HP notes AICD and PN state PM. Pt reported well prior to acute respiratory issues, being treated for aspiration PNA. presenting BP 133/62, ED notes that pt was transferred and had presented with hypertension( no EMS record found) Treatment:Vasotec, Celvidipine gtt Ct head without contrast 07/23 no acute intracranial findings In your opinion, what is the most clinically appropriate diagnosis for this patient? Hx of CVA Acute CVA POA Acute CVA and hx of CVA POA Other explanation of clinical findings Unable to determine (no explanation for clinical findings)_ Hx of CVA MTDD
--- NOTE | 2018-08-01 16:12 | CDI ---
Documentation Clarification Form Date: 08/01/2018 3:45:15 PM From: Lindsay FIELDS,RN, CCDS Email:[email or web address] Admit Date: 07/23/2018 5:38:00 AM Patient Name: Santosh Coyle Visit Number: [id number] Discharge Date: 07/29/2018 10:35:00 PM ATTENTION: The Clinical Documentation Specialists (CDI) and [facility] Coding Staff appreciate your assistance in clarifying documentation. Please respond to the clarification below the line at the bottom and electronically sign. The CDI & [facility] Coding staff will review the response and follow-up if needed. Please note: Queries are made part of the Legal Health Record. If you have any questions, please contact the author of this message via ITS. Dr. Zeke Gasca Echo performed on 07/24 notes normal EF and notes moderate to severe pulmonary HTN. History/Risk Factors: CAD, s/p AICD/CABG, HTN,COPD , emphysema and respiratory failure Clinical indicators: Chest with effusions and PVC. Treatment: Antihypertensive, IV lasix for volume overload, Mechanical ventilation Clinical significance of diagnostic testing and treatment CANNOT be assumed or coded without physician documentation of significance if any. Please clarify clinical significance if any of ECHO findings: Pulmonary HTN Abnormal Echo finding Unable to determine Other, please specify (Last Revision: November 2016) Pulmonary HTN MTDD
--- NOTE | 2018-08-01 16:51 | CDI ---
Documentation Clarification Form Date: 08/01/2018 From: Lindsay FIELDS,RN,CCDS Email: [email or web address] Admit Date: 07/23/2018 5:38:00 AM Patient Name: Santosh Coyle Visit Number: [id number] Discharge Date: 07/29/2018 10:35:00 PM ATTENTION: The Clinical Documentation Specialists (CDI) and [facility] Coding Staff appreciate your assistance in clarifying documentation. Please respond to the clarification below the line at the bottom and electronically sign. The CDI & [facility] Coding staff will review the response and follow-up if needed. Please note: Queries are made part of the Legal Health Record. If you have any questions, please contact the author of this message via ITS. Dr. Zeke Gasca Documentation states pt is being treated for aspiration PNA on presentation, Required intubation and ventilation. History/Risk Factors: CAD, Emphysema and COPD and Acute on chronic hypoxic hypercapnic respiratory failure admitted after resp distress and AMS Clinical indicators: pt with high fever 07/26 Chest 07/23 no acute process Chest 07/24 new small left effusion and trace rt pleurla effusion and basilar airspace disease Chest 07/27 bilateral infiltrate and pleural effusion Sputum Culture on nl aj and sputum on 07/26 with MRSA Treatment: IV Tylenol, Vancomycin and Zosyn , mechanical vent with failed extubation attempts Clinical significance of diagnostic testing and treatment CANNOT be assumed or coded without physician documentation of significance if any. Please clarify what abnormal laboratory signifies: Disease process, please specify Infectious process, please specify MRSA pneumonia Abnormal Lab Value Unable to determine Other, please specify (Last Revision: November 2016) MRSA pneumonia MTDD
== END 2018-07-29 22:35 | disposition expired | DRG 207 ==
LOC: EC 03:05 → 2SICU 05:38 → 4MS4W 07-29 17:51
PROVIDERS: ADMIT Hospitalist; ATTEND Hospitalist
PROC: 0BH18EZ Insertion of Endotracheal Airway into Trachea, Via Natural or Artificial Opening Endoscopic (ICD-10-PCS; principal; 2018-07-23)
PROC: 5A1955Z Respiratory Ventilation, Greater than 96 Consecutive Hours (ICD-10-PCS; principal; 2018-07-23)
PROC: 4A133B1 Monitoring of Arterial Pressure, Peripheral, Percutaneous Approach (ICD-10-PCS; 2018-07-23)
PROC: 02HV33Z Insertion of Infusion Device into Superior Vena Cava, Percutaneous Approach (ICD-10-PCS; 2018-07-23)
PROC: 4A133J1 Monitoring of Arterial Pulse, Peripheral, Percutaneous Approach (ICD-10-PCS; 2018-07-23)
PROC: 03HY32Z Insertion of Monitoring Device into Upper Artery, Percutaneous Approach (ICD-10-PCS; 2018-07-23)
PROC: 5A09457 Assistance with Respiratory Ventilation, 24-96 Consecutive Hours, Continuous Positive Airway Pressure (ICD-10-PCS; 2018-07-28)
DX: J96.21 Acute and chronic respiratory failure with hypoxia (principal); J69.0 Pneumonitis due to inhalation of food and vomit; J15.212 Pneumonia due to Methicillin resistant Staphylococcus aureus; J90 Pleural effusion, not elsewhere classified; E87.2 Acidosis; J96.22 Acute and chronic respiratory failure with hypercapnia; E78.5 Hyperlipidemia, unspecified; F03.90 Unspecified dementia, unspecified severity, without behavioral disturbance, psychotic disturbance, mood disturbance, and anxiety; H91.90 Unspecified hearing loss, unspecified ear; I10 Essential (primary) hypertension; I25.10 Atherosclerotic heart disease of native coronary artery without angina pectoris; I48.0 Paroxysmal atrial fibrillation; J43.9 Emphysema, unspecified; N40.0 Benign prostatic hyperplasia without lower urinary tract symptoms; Z51.5 Encounter for palliative care; I27.20 Pulmonary hypertension, unspecified; Z95.810 Presence of automatic (implantable) cardiac defibrillator; Z89.021 Acquired absence of right finger(s); Z74.01 Bed confinement status; Z79.01 Long term (current) use of anticoagulants; Z79.899 Other long term (current) drug therapy; Z80.3 Family history of malignant neoplasm of breast; Z82.3 Family history of stroke; Z85.46 Personal history of malignant neoplasm of prostate; Z86.73 Personal history of transient ischemic attack (TIA), and cerebral infarction without residual deficits; Z95.1 Presence of aortocoronary bypass graft; Z99.3 Dependence on wheelchair
CPT/HCPCS: 31500; 36415; 36600; 70450; 71045; 80048; 80053; 81003; 82805; 83036; 83735; 84100; 84132; 84145; 85025; 87040; 87070; 87077; 87186; 87205; 93005; 93306; 94002; 94003; 94640; 94660; 99291